=== PATIENT | male | born 1940 | race Caucasian/White ===

== ENCOUNTER 2017-08-02 08:37 | Outpatient (CLI) | payer MEDICARE, BC ==
[2017-08-02 13:25] LABS: Bilirubin Negative (Negative); Blood, Urine Negative (Negative); Glucose, Urine (Dipstick) Negative (Negative); Ketone, Urine Negative (Negative); Nitrite Negative (Negative); Protein, Urine (Dipstick) Trace mg/dL (Neg-Trace); Urobilinogen 0.2 mg/dL (0.2-1.0)
[2017-08-02 13:30] LABS: Bacteria/HPF None Seen HPF (None Seen); Hyaline Casts/LPF 0-3 HYALINE CAST LPF (0-3 Hyaline); RBC/HPF 0-3 HPF (0-3); Squamous Epithelial None Seen HPF (0-3); WBC/HPF None Seen HPF (0-3)
[2017-08-02 13:35] LABS: Hematocrit 32.3 % (42.0-52.0); Mean Platelet Volume 7.8 fL (7.4-10.4); Red Blood Cell (RBC) Count 3.05 mill/uL (4.70-6.10); White Blood Cell (WBC) Count 6.7 thou/uL (4.8-10.8)
[2017-08-02 13:45] LABS: PTT 28.9 SEC (22.9-36.1); Prothrombin Time 14.5 SEC (12.0-14.7)
[2017-08-02 13:47] LABS: Anion Gap 14 mmol/L (10-20); BUN (Urea Nitrogen) 42 mg/dL (8.4-25.7); Calc. Creatinine Clearance 0 mL/min (70-130); Calcium 9.1 mg/dL (7.8-10.44); Carbon Dioxide 17 mmol/L (23-31); Chloride 115 mmol/L (98-107); Estimated GFR-MDRD 49
== END 2017-08-02 08:38 | disposition home or self-care (01) ==
LOC: LABBT 08:37
PROVIDERS: ATTEND Orthopaedic Surgery
DX: Z01.818 Encounter for other preprocedural examination (principal); M17.11 Unilateral primary osteoarthritis, right knee
CPT/HCPCS: 80048; 81001; 85027; 85610; 85730; 86850; 86900; 86901; 87081; 93005; 93010

== ENCOUNTER 2017-08-02 09:15 | Inpatient (IN) | payer MEDICARE, BC ==
[2017-08-02 09:15] VITALS: BMI 28.5
--- NOTE | 2017-08-04 06:21 | HP ---
DATE OF ADMISSION: 08/08/2017 HISTORY OF PRESENT ILLNESS: The patient is a 76-year-old male with a long history of progressive de generative arthritis of the right knee. He has had previous arthroscopy 8 to 10 years ago. The pat ient has progressive symptoms despite rest, restriction of activities, pain medications, and previou s cortisone injection. The pain is now interfering with day-to-day activities. PAST MEDICAL HISTORY: The patient has history of atherosclerotic cardiovascular disease. PAST SURGICAL HISTORY: He has had previous CABG, pacemaker insertion and a cardiac ablation. He madden s been seen and cleared for surgery by Dr. Miranda. He has also had medical clearance from Dr. Chelita farias. The patient has had a recent circumcision and he is having no further problems and this wound is healed. This was performed by Dr. Hdez. CURRENT MEDICATIONS: Include aspirin 81 mg, Eliquis, although he has stopped this 3 days prior to a nticipated surgery. His other medications include enalapril, carvedilol, Lipitor, isosorbide, folic acid, fish oil, pantoprazole, Levemir for diabetes, Nateglinide, Lasix, spironolactone, multivitami ns, Tylenol #3. ALLERGIES: He has no known allergies. FAMILY HISTORY/SOCIAL HISTORY/REVIEW OF SYSTEMS: Otherwise unremarkable. The patient has had ring finger trigger finger treated with cortisone injection. PHYSICAL EXAMINATION: GENERAL: Reveals an elderly healthy male. HEENT: Unremarkable. NECK: Supple. CHEST: Clear. HEART: Regular rate and rhythm. ABDOMEN: Soft, nontender. RECTAL/GENITAL: Deferred. EXTREMITIES: Pertinent findings are related to the right knee. There is a trace effusion. There i s moderate varus deformity. There is tenderness and crepitus over the medial joint line. There are healed arthroscopy puncture sites. Range of motion is 5-105 degrees. There is no instability. NEUROVASCULAR: Intact. Pulses are 1+. There is a right antalgic gait. X-RAY FINDINGS: X-rays of the right knee reveal bone on bone collapse medially. IMPRESSION: 1. Posttraumatic degenerative arthritis, right knee 2. Atherosclerotic cardiovascular disease, on Eliquis. 3. Diabetes. 4. History of prostate cancer in remission. PLAN: Right total knee replacement. The nature of the surgery, length of recovery, and potential c omplications such as infection, loss of motion, incomplete relief, delayed wound healing, neurovascu lar injury, thromboembolic phenomenon, possible transfusion, and need for revision have been discuss ed in detail.
[2017-08-08] MEDS ORDERED: Tranexamic Acid 1,000 MG/100 ML BAG ONE ×2 (07:06→11:37)
[2017-08-08] MEDS ORDERED: Vancomycin HCl 1.5 GM, Admixture Fee 1 EACH in Sodium Chloride 0.9% 250 ML 300 ML IVPB SCH (07:30)
[2017-08-08] MEDS ORDERED: Midazolam HCl 2 mg/2 ml Vial ONE (07:38)
[2017-08-08] MEDS ORDERED: Ropivacaine 0.2% HCl/PF 20 ML ONE (07:38)
[2017-08-08] MEDS ORDERED: Fentanyl 100 MCG/2 ML VIAL ONE (07:38)
[2017-08-08] MEDS ORDERED: traMADol HCl 50 MG TAB PO PRN ×3 (07:51→12:18)
[2017-08-08] MEDS ORDERED: Zolpidem Tartrate 5 MG TAB PO PRN ×3 (07:51→17:24)
[2017-08-08] MEDS ORDERED: Ropivacaine HCl/PF 250 ML in Premix Bag 1 BAG NERVE BLCK SCH (07:51)
[2017-08-08] MEDS ORDERED: Ondansetron HCl/PF 4 MG/2 ML Vial IVP PRN ×4 (07:51→17:24)
[2017-08-08] MEDS ORDERED: Promethazine HCl 25 MG/ML VIAL IM PRN ×3 (07:51→17:24)
[2017-08-08] MEDS ORDERED: HYDROcodone/Acetaminophen 7.5/325 mg Tablet PO PRN ×2 (07:52)
[2017-08-08] MEDS ORDERED: Lidocaine 1% w/Epinephrine 1:200K 30 ML VIAL ONE (09:07)
[2017-08-08] MEDS ORDERED: Bupivacaine 0.25% HCL 30 ML VIAL ONE (09:07)
[2017-08-08] MEDS ORDERED: Midazolam HCl 5 mg/5 ml Vial ONE (09:20)
[2017-08-08] MEDS ORDERED: PHENYLEPHRINE-NS 100 MCG/ML 10 ML SYRINGE ONE (10:16)
[2017-08-08] MEDS ORDERED: Propofol 200 MG/20 ML VIAL ONE (10:16)
[2017-08-08] MEDS ORDERED: Promethazine HCl 25 MG/ML VIAL SLOW IVP PRN ×2 (11:37→12:18)
[2017-08-08] MEDS ORDERED: Tranexamic Acid 1,000 MG in Sodium Chloride 0.9% 100 ML IVPB SCH ×2 (11:45→12:18)
[2017-08-08] MEDS ORDERED: diphenhydrAMINE HCl 25 MG CAP PO PRN ×2 (12:18→17:24)
[2017-08-08] MEDS ORDERED: Acetaminophen 325 MG TAB PO PRN (12:18)
[2017-08-08] MEDS ORDERED: Cyanocobalamin 1000 MCG/ML VIAL IM SCH (12:18)
[2017-08-08] MEDS ORDERED: Fentanyl 100 MCG/2 ML VIAL SLOW IVP PRN (12:18)
[2017-08-08] MEDS ORDERED: HYDROcodone/Acetaminophen 10/325 mg Tablet PO PRN ×2 (12:18)
[2017-08-08] MEDS: Fentanyl 100 MCG/2 ML VIAL IV PRN ×2 (12:45→14:51)
--- NOTE | 2017-08-08 13:44 | OP ---
DATE OF PROCEDURE: 08/08/2017 SURGEON: Dr. Arturo Menendez EP TECHNOLOGIST: Pancho Kaufman PA-C. ANESTHESIA: Spinal plus femoral and sciatic nerve blocks. PREOPERATIVE DIAGNOSES: Degenerative arthritis, right knee. POSTOPERATIVE DIAGNOSIS: Degenerative arthritis, right knee. PROCEDURES: Right total knee replacement with cemented Triathlon components with computer-assisted navigation. NARRATIVE REPORT: After satisfactory anesthesia was induced in supine position, sequential compress ion device was placed on the non-operative leg throughout the procedure. The right leg was then pre pped and draped in routine sterile fashion. Right leg was elevated, exsanguinated with an Esmarch b andage, and the tourniquet inflated to 250 mmHg. A longitudinal midline incision was made and jose f ed down through subcutaneous tissues. Bleeding points controlled with cautery. Medial parapatellar arthrotomy was performed. Patella was dislocated laterally and portions of the fat pad were excise d for exposure. There was marked degenerative arthritis of the knee, especially medially, with larg e areas of exposed bone. Meniscal remnants and osteophytes were removed. Using the [employer] pinless navigation system and the appropriate guides, the distal femoral and proximal tibial articular surf aces were excised with an oscillating saw to accept the trial components. It was felt that a #7 fem oral component with #6 tibial baseplate and 9-mm CS plastic insert gave appropriate size, fit, stabi lity, and correction of the preoperative deformity. The patellar articular surface was excised to a ccept an all plastic A35 patellar component. There was good patellar tracking. The trial component s were removed. The knee was copiously irrigated with pulsatile lavage and the bony surfaces thorou ghly cleaned and dried. The permanent components were then cemented in a single stage using 1 packa ge of cement mixed with 1 gram of tobramycin powder. Excess cement was removed. There was again go od fit and stability of the components. Knee was again copiously irrigated. The medial retinaculum and quadriceps mechanism was closed with interrupted #2 Vicryl and a running #2 Quill. Subcutaneou s tissues were closed with running 0 Quill suture and the skin closed with running subcuticular 3-0 Monoderm and SurgiSeal skin adhesive. Sterile bulky compressive dressing was applied and the tourni quet deflated after 77 minutes. The foot promptly pinked up. Sequential compression device was baudilio raul on the operated leg. He was awakened and taken to recovery room in stable condition. There wer e no apparent intraoperative complications. The estimated blood loss was less than 100 mL.
[2017-08-08] MEDS ORDERED: Carvedilol 6.25 MG TAB PO SCH (14:00)
[2017-08-08] MEDS ORDERED: Dextrose 5% in Water 1,000 ML IV PRN (14:53)
[2017-08-08] MEDS ORDERED: Dextrose 50% Abboject 50 ML SYRINGE SLOW IVP PRN (14:53)
[2017-08-08] MEDS ORDERED: HumaLOG 300 UNITS/3 ML VIAL SC PRN (14:53)
[2017-08-08] MEDS: Fentanyl 100 MCG/2 ML VIAL SLOW IVP PRN ×2 (15:50→17:18)
--- NOTE | 2017-08-08 16:16 | RAD ---
RIGHT KNEE TWO VIEWS: 08/08/17 HISTORY: 76-year-old male status post total knee replacement. FINDINGS: Recent total knee replacement changes. No dislocation or periprosthetic acute fracture or significan t abnormality. IMPRESSION: Recent post total knee arthroplasty changes. POS: OFF
[2017-08-08] MEDS: Fish Oil 1,000 MG CAP PO SCH ×2 (17:19→20:28)
[2017-08-08] MEDS ORDERED: HYDROmorphone 10 mg/100 ml CADD IVPB PRN (17:24)
[2017-08-08] MEDS ORDERED: diphenhydrAMINE HCl 50 MG/ML 1 ML VIAL IVP PRN (17:24)
[2017-08-08] MEDS ORDERED: Naloxone HCl 0.4 mg/ml Vial IV PRN (17:24)
[2017-08-08] MEDS ORDERED: diphenhydrAMINE HCl 50 MG/ML 1 ML VIAL IM PRN (17:24)
[2017-08-08] MEDS ORDERED: Communication Order-Pharmacy FS SCH (17:30)
[2017-08-08] MEDS: Sodium Chloride 0.9% 1,000 ML IV SCH ×2 (19:27→21:24)
[2017-08-08] MEDS: Nateglinide 120 MG TAB PO SCH (19:29)
[2017-08-08] MEDS ORDERED: Vancomycin HCl 1.5 GM in Sodium Chloride 0.9% 250 ML 300 ML IVPB SCH (20:00)
[2017-08-08] MEDS: Atorvastatin Calcium 20 MG TAB PO SCH (20:28)
[2017-08-08] MEDS: Carvedilol 6.25 MG TAB PO SCH (20:28)
[2017-08-08] MEDS: Spironolactone 25 MG TAB PO SCH (20:28)
--- NOTE | 2017-08-08 20:39 | CON ---
DATE OF CONSULTATION: 08/08/2017 ATTENDING PHYSICIAN: Dr. Menendez. PRIMARY CARE PHYSICIAN: Dr. Gibbs. WEATHER ANCHOR: Dr. Miranda. REASON FOR CONSULTATION: Further Aid in medical management. HOSPITAL COURSE: Mr. Ramos is a 76-year-old gentleman who was admitted to the hospital for an el ective right total knee replacement. The patient had failed conservative measures. The patient cur rently is approximately 3 hours postop and has no significant complaint other than some soreness in his right knee. He denies chest pain or shortness of breath. No PND, no orthopnea, no nausea, no v omiting. PAST MEDICAL HISTORY: Significant for pacemaker placement; coronary artery disease status post bypa ss; elevated cholesterol; hypertension; diabetes; prostate cancer as well as macular degeneration. PAST SURGICAL HISTORY: He has had coronary bypass grafting as well as an ablation, tonsillectomy, c holecystectomy and adenoidectomy. ALLERGIES: There are no known drug allergies. SOCIAL HISTORY: He is a former smoker, denies any alcohol use. , has 2 children. FAMILY HISTORY: Significant for hypertension, cerebrovascular disease, diabetes, and heart disease. MEDICATIONS: Current medications include: Eliquis 5 mg twice daily, ascorbic acid 500 mg daily, as pirin 81 mg daily, atorvastatin 20 mg q.p.m., blueberry 1 capsule daily, carvedilol 12.5 mg twice da rossy, cholecalciferol 1000 units q. day, cranberry extract 1 daily, cyanocobalamin 1000 mcg injection once a month akinesia, enalapril 5 mg twice daily, fish oil 1000 mg 3 times a day, folic acid 0.4 m g daily, chondroitin complex once a day, green tea extract 500 mg daily, Levemir insulin 55 units bone bcu at bedtime, isosorbide mononitrate extended release 60 mg, but he takes one-half tablet daily, l utein 20 mg daily, Centrum Silver 1 tablet daily, Starlix 120 mg q. day, Protonix 40 mg daily, Aldac tone 25 mg daily, zinc 50 mg daily, turmeric capsule 3 times a day. PHYSICAL EXAMINATION: GENERAL: He is alert and oriented. He appears to be in no acute distress. VITAL SIGNS: Blood pressure was 158/78, heart rate is in the 60s, respiratory rate of 16, and he is afebrile. HEENT: Pupils are equal, round, and reactive. Extraocular muscles are intact. His sclerae are ani cteric. Throat: There is no erythema, no exudates. NECK: No adenopathy. No bruits. LUNGS: Clear. No wheezing, no rales. CARDIOVASCULAR: He has a normal S1, S2. No S3 or S4. No murmurs, clicks, no rubs. ABDOMEN: Soft, nontender, nondistended. Positive for bowel sounds. No rebound, no guarding. EXTREMITIES: There is no clubbing, cyanosis, no edema. NEUROLOGIC: The exam is nonfocal. LABORATORY DATA: He had lab results done on 08/02/2017, which will have been reviewed. ASSESSMENT AND PLAN: 1. This is a pleasant 76-year-old gentleman who is being admitted for an elective right total knee replacement. The patient is shortly postop and he is doing quite well. His blood pressure is overa ll stable. He is currently getting his first dose of antihypertensive now. With regards to his blo od pressure, we will continue his usual home medications and place him on hydralazine only as needed . 2. For diabetes mellitus, his oral hypoglycemic Starlix can be restarted tomorrow and we will cover him with a sliding scale insulin in the interim. He has a history of chronic anticoagulation, pres umably for atrial fibrillation and he is on Eliquis, this has already been restarted. There is a hi story of atrial flutter in his records from Dr. Miranda. Otherwise, we will be happy to follow alvarez hernandez with you.
[2017-08-09] MEDS: HumaLOG 300 UNITS/3 ML VIAL SC PRN ×3 (05:46→16:35)
[2017-08-09 06:27] LABS: Hematocrit 27.5 % (42.0-52.0); Red Blood Cell (RBC) Count 2.63 mill/uL (4.70-6.10); White Blood Cell (WBC) Count 7.4 thou/uL (4.8-10.8)
[2017-08-09] MEDS ORDERED: Diabetic Tussin 200 MG/10 ML UDCUP PO PRN (06:53)
[2017-08-09] MEDS ORDERED: Mag-Al 1200 mg/1200 mg/30 ML UDCUP PO PRN (06:53)
[2017-08-09] MEDS ORDERED: Milk Of Magnesia 30 ML UDCUP PO PRN (06:53)
[2017-08-09] MEDS ORDERED: Artificial Tears 18 DROP/0.9 ML EA EYE PRN (06:53)
[2017-08-09] MEDS ORDERED: Eucerin (Mineral Oil/Petrolatum,White) 30 gm Jar TOP PRN (06:53)
[2017-08-09] MEDS ORDERED: Loperamide HCl 2 MG CAP PO PRN (06:53)
[2017-08-09] MEDS ORDERED: Senokot 8.6 MG TAB PO PRN (06:53)
[2017-08-09] MEDS ORDERED: Ondansetron ODT 4 MG TAB PO PRN (06:53)
[2017-08-09] MEDS: Cyanocobalamin (Vitamin B-12) 1,000 MCG TAB PO SCH (07:57)
[2017-08-09] MEDS: Famotidine 20 MG TAB PO SCH ×2 (07:57→20:29)
[2017-08-09] MEDS: Folic Acid 1 MG TAB PO SCH (07:57)
[2017-08-09] MEDS: Senokot S 8.6-50 MG TAB PO SCH ×2 (07:58→20:27)
[2017-08-09] MEDS: Fish Oil 1,000 MG CAP PO SCH ×4 (07:58→20:28)
[2017-08-09] MEDS: Apixaban 5 MG TAB PO SCH ×2 (07:58→20:28)
[2017-08-09] MEDS: Multivitamin W/ Minerals 1 TAB PO SCH (07:59)
[2017-08-09] MEDS: Ferrous Gluconate 324 MG TAB PO SCH ×2 (07:59→16:34)
[2017-08-09] MEDS: Carvedilol 6.25 MG TAB PO SCH ×2 (08:00→20:27)
[2017-08-09] MEDS: Ascorbic Acid 500 mg Chewable Tablet PO SCH (08:00)
[2017-08-09] MEDS: Aspirin 81 mg Enteric Coated Tablet PO SCH (08:00)
[2017-08-09] MEDS: Nateglinide 120 MG TAB PO SCH ×3 (08:01→16:52)
[2017-08-09] MEDS ORDERED: Lutein [Lutein] 20 MG PO SCH (09:00)
--- NOTE | 2017-08-09 11:59 | PDOC.PN ---
- Subjective Encounter Start Date: 08/09/17 Encounter Start Time: 07:30 -: old records requested/rev Patient seen and examined. No new complaints. No overnight events - Objective MAR Reviewed: Yes Vital Signs & Weight: Vital Signs (12 hours) Temp Pulse Resp BP BP Pulse Ox 08/09/17 08:01 143/69 H 08/09/17 08:00 97.8 F 73 18 143/69 H 08/09/17 03:47 98.1 F 69 16 127/66 96 Weight Weight 205 lb I&O: 08/08/17 08/09/17 08/10/17 06:59 06:59 06:59 Output Total 1100 Balance -1100 Result Diagrams: 08/09/17 05:18 Additional Labs: Accuchecks 08/09/17 08/09/17 08/08/17 11:08 05:44 20:40 POC Glucose 232 H 227 H 236 H Phys Exam - Physical Examination Constitutional: NAD HEENT: PERRLA, moist MMs, sclera anicteric Neck: no JVD, supple Respiratory: no wheezing, no rales, no rhonchi Cardiovascular: RRR, no significant murmur, no rub Gastrointestinal: soft, non-tender, no distention, positive bowel sounds Musculoskeletal: no edema, pulses present right kneww with dressing, nerve block in place Neurological: non-focal, normal sensation, moves all 4 limbs Psychiatric: normal affect, A&O x 3 Skin: no rash, normal turgor Dx/Plan (1) Status post total right knee replacement Code(s): Z96.651 - PRESENCE OF RIGHT ARTIFICIAL KNEE JOINT Status: Acute (2) CAD (coronary artery disease) Code(s): I25.10 - ATHSCL HEART DISEASE OF [place] CORONARY ARTERY W/O ANG PCTRS Status: Chronic (3) Chronic anticoagulation Code(s): Z79.01 - RESIDENTIAL (CURRENT) USE OF ANTICOAGULANTS Status: Chronic (4) Diabetes type 2, controlled Code(s): E11.9 - TYPE 2 DIABETES MELLITUS WITHOUT COMPLICATIONS Status: Chronic (5) Dyslipidemia Code(s): E78.5 - HYPERLIPIDEMIA, UNSPECIFIED Status: Chronic (6) GERD (gastroesophageal reflux disease) Code(s): K21.9 - GASTRO-ESOPHAGEAL REFLUX DISEASE WITHOUT ESOPHAGITIS Status: Chronic (7) Hypertension Code(s): I10 - ESSENTIAL (PRIMARY) HYPERTENSION Status: Chronic (8) Macrocytic anemia Code(s): D53.9 - NUTRITIONAL ANEMIA, UNSPECIFIED Status: Chronic (9) Osteoarthritis Code(s): M19.90 - UNSPECIFIED OSTEOARTHRITIS, UNSPECIFIED SITE Status: Chronic - Plan cont current plan of care, PT/OT * continue aspirin for DVT prophylaxis * continue pepcid for GI prophylaxis * nerve block as per anesthesia * PT/OT as per JU protocol treatment * code status - Full code * medication reviewed as below * symptomatic treatment * discussed with family. * pain controlled * start levemir. Review of Systems - Review of Systems ENT: negative: Ear Pain, Ear Discharge, Nose Pain, Nose Discharge, Nose Congestion, Mouth Pain, Mouth Swelling, Throat Pain, Throat Swelling, Other Respiratory: negative: Cough, Dry, Shortness of Breath, Hemoptysis, SOB with Excertion, Pleuritic Pain, Sputum, Wheezing Cardiovascular: negative: Chest Pain, Palpitations, Orthopnea, Paroxysmal Noc. Dyspnea, Edema, Light Headedness, Other Gastrointestinal: negative: Nausea, Vomiting, Abdominal Pain, Diarrhea, Constipation, Melena, Hematochezia, Other Genitourinary: negative: Dysuria, Frequency, Incontinence, Hematuria, Retention , Other Musculoskeletal: negative: Neck Pain, Shoulder Pain, Arm Pain, Back Pain, Hand Pain, Leg Pain, Foot Pain, Other - Medications/Allergies Allergies/Adverse Reactions: Allergies Allergy/AdvReac Type Severity Reaction Status Date / Time clopidogrel [From Plavix] Allergy Verified 08/02/17 09:15 Medications: Current Medications Acetaminophen (Tylenol) 650 mg PO Q4H PRN PRN Reason: HOPE/ T > 101F; Mild Pain (1-3) Al Hydroxide/Mg Hydroxide (Maalox) 15 ml PO Q4H PRN PRN Reason: Heartburn or Indigestion Apixaban (Eliquis) 2.5 mg PO BID [facility] Last Admin: 08/09/17 07:58 Dose: 2.5 mg Artificial Tears (Tears Naturale) 0 drop EA EYE PRN PRN PRN Reason: Dry Eyes Ascorbic Acid (Vitamin C) 500 mg PO QAM [facility] Last Admin: 08/09/17 08:00 Dose: 500 mg Aspirin ([facility]cot[facility]) [facility] [place] Last Admin: 08/09/17 08:00 Dose: 81 mg Atorvastatin Calcium (Lipitor) 20 mg PO QPM [facility] Last Admin: 08/08/17 20:28 Dose: 20 mg Carvedilol (Coreg) 12.5 mg PO BID [facility] Last Admin: 08/09/17 08:00 Dose: 12.5 mg Cholecalciferol (Vitamin D3) 1,000 units PO QAM [facility] Last Admin: 08/09/17 07:57 Dose: 1,000 units Cyanocobalamin (Vitamin B-12) 1,000 mcg PO DAILY [facility] Last Admin: 08/09/17 07:57 Dose: 1,000 mcg Dextrose/Water (Dextrose 50%) 25 gm SLOW IVP PRN PRN PRN Reason: Hypoglycemia Diphenhydramine HCl (Benadryl) 25 mg PO Q6H PRN PRN Reason: Itching Diphenhydramine HCl (Benadryl) 25 mg IVP Q3H PRN PRN Reason: Itching Diphenhydramine HCl (Benadryl) 25 mg PO Q3H PRN PRN Reason: Itching Diphenhydramine HCl (Benadryl) 25 mg IM Q3H PRN PRN Reason: Itching Enalapril Maleate (Vasotec) 5 mg PO BID [facility] Last Admin: 08/09/17 08:01 Dose: 5 mg Famotidine (Pepcid) 20 mg PO BID [facility] Last Admin: 08/09/17 07:57 Dose: 20 mg Ferrous Gluconate (Fergon) 324 mg PO BID[facility] Last Admin: 08/09/17 07:59 Dose: 324 mg Fish Oil (Fish Oil) 1,000 mg PO TID [facility] Last Admin: 08/09/17 07:58 Dose: 1,000 mg Folic Acid (Folvite) 1 mg PO DAILY [facility] Last Admin: 08/09/17 07:57 Dose: 1 mg Glucagon (Glucagon) 1 mg IM PRN PRN PRN Reason: Hypoglycemia Guaifenesin (Robitussin Sf) 200 mg PO Q4H PRN PRN Reason: Cough Hydralazine HCl (Apresoline) 25 mg PO TID PRN PRN Reason: SBP Greater Than 170 Hydralazine HCl (Apresoline) 10 mg SLOW IVP Q4H PRN PRN Reason: Systolic BP > 180 Hydromorphone HCl (Dilaudid Cadd) 0 mg IVPB INF PRN PRN Reason: Pain Last Admin: 08/08/17 19:53 Dose: 10 mg Ropivacaine 250 ml/ Device 250 mls @ 0 mls/hr NERVE BLCK INF HERSON PRN Reason: As Directed Sodium Chloride (Normal Saline 0.9%) 1,000 mls @ 100 mls/hr IV .Q10H [facility] Last Admin: 08/08/17 21:24 Dose: Not Given Dextrose/Water (D5w) 1,000 mls @ 0 mls/hr IV .Q0M PRN; As Directed PRN Reason: Hypoglycemia Insulin Detemir 55 units/ (Miscellaneous Medication) 0.55 mls @ 0 mls/hr SC HS HERSON Insulin Human Lispro (Humalog) 0 units SC .MODERATE SLIDING SC PRN PRN Reason: Moderate Correctional Scale Last Admin: 08/09/17 11:34 Dose: 4 unit Insulin Human Lispro (Humalog) 0 units SC .BEDTIME SLIDING SC PRN PRN Reason: Bedtime Correctional Scale Last Admin: 08/08/17 20:42 Dose: 2 unit Iron/Minerals/Multivitamins (Theragran M) 1 tab PO DAILY [facility] Last Admin: 08/09/17 07:59 Dose: 1 tab Isosorbide Mononitrate (Imdur Er) 30 mg PO QPM [facility] Last Admin: 08/08/17 20:28 Dose: 30 mg Loperamide HCl (Imodium) 2 mg PO PRN PRN PRN Reason: Diarrhea/Loose Stools Magnesium Hydroxide (Milk Of Magnesium) 30 ml PO DAILYPRN PRN PRN Reason: Constipation Mineral Oil/White Petrolatum (Eucerin Cream) 0 gm TOP BIDPRN PRN PRN Reason: Dry Skin Naloxone HCl (Narcan) 0.2 mg IV Q5MIN PRN PRN Reason: Opiate Reversal Nateglinide (Starlix) 120 mg PO AC [facility] Last Admin: 08/09/17 08:01 Dose: 120 mg Ondansetron HCl (Zofran) 4 mg IVP Q6H PRN PRN Reason: Nausea/Vomiting Last Admin: 08/09/17 06:34 Dose: 4 mg Ondansetron HCl (Zofran) 4 mg IVP Q6H PRN PRN Reason: Nausea/Vomiting Ondansetron HCl (Zofran Odt) 4 mg PO Q6H PRN PRN Reason: Nausea/Vomiting Pantoprazole Sodium (Protonix) 40 mg PO 2100 [facility] Last Admin: 08/08/17 20:28 Dose: Not Given Lutein [Lutein] 20 (Mg) 1 each PO QAM [facility] Promethazine HCl (Phenergan) 12.5 mg SLOW IVP Q4H PRN PRN Reason: Nausea/Vomiting Promethazine HCl (Phenergan) 12.5 mg IM Q4H PRN PRN Reason: Nausea/Vomiting Senna (Senokot) 2 tab PO HSPRN PRN PRN Reason: Constipation Senna/Docusate Sodium (Senokot S) 2 tab PO BID [facility] Last Admin: 08/09/17 07:58 Dose: 2 tab Sodium Chloride (Flush - Normal Saline) 10 ml IVF Q12HR [facility] Last Admin: 08/08/17 20:28 Dose: Not Given Sodium Chloride (Flush - Normal Saline) 10 ml IVF PRN PRN PRN Reason: Saline Flush Spironolactone (Aldactone) 25 mg PO HS [facility] Last Admin: 08/08/17 20:28 Dose: 25 mg Zolpidem Tartrate (Ambien) 5 mg PO HSPRN PRN PRN Reason: Insomnia
[2017-08-09] MEDS: Sodium Chloride 0.9% 1,000 ML IV SCH ×2 (16:03→20:22)
[2017-08-09] MEDS: Spironolactone 25 MG TAB PO SCH (20:27)
[2017-08-09] MEDS: Atorvastatin Calcium 20 MG TAB PO SCH (20:28)
[2017-08-09] MEDS ORDERED: Insulin Detemir 100 UNITS/ML 55 UNITS in Pre-Filled Syringe 1 EACH SC SCH (21:00)
[2017-08-09] MEDS ORDERED: Non-Formulary Item 1 EACH (Insulin Detemir 100 Units/Ml [Levemir] 55 UNITS) SC SCH (21:00)
[2017-08-10] MEDS: Sodium Chloride 0.9% 1,000 ML IV SCH (04:11)
[2017-08-10 05:45] LABS: Hematocrit 27.1 % (42.0-52.0); Mean Platelet Volume 7.7 fL (7.4-10.4); Red Blood Cell (RBC) Count 2.56 mill/uL (4.70-6.10); White Blood Cell (WBC) Count 9.5 thou/uL (4.8-10.8)
[2017-08-10] MEDS: Famotidine 20 MG TAB PO SCH (07:49)
[2017-08-10] MEDS: Ascorbic Acid 500 mg Chewable Tablet PO SCH (07:49)
[2017-08-10] MEDS: Folic Acid 1 MG TAB PO SCH (07:49)
[2017-08-10] MEDS: Aspirin 81 mg Enteric Coated Tablet PO SCH (07:50)
[2017-08-10] MEDS: Senokot S 8.6-50 MG TAB PO SCH (07:50)
[2017-08-10] MEDS: Apixaban 5 MG TAB PO SCH (07:50)
[2017-08-10] MEDS: Carvedilol 6.25 MG TAB PO SCH (07:51)
[2017-08-10] MEDS: Ferrous Gluconate 324 MG TAB PO SCH (07:51)
[2017-08-10] MEDS: Fish Oil 1,000 MG CAP PO SCH (07:52)
[2017-08-10] MEDS: Multivitamin W/ Minerals 1 TAB PO SCH (07:52)
[2017-08-10] MEDS: Nateglinide 120 MG TAB PO SCH (07:52)
[2017-08-10] MEDS: Cyanocobalamin (Vitamin B-12) 1,000 MCG TAB PO SCH (09:05)
--- NOTE | 2017-08-10 10:08 | PDOC.PN ---
- Subjective Encounter Start Date: 08/10/17 Encounter Start Time: 07:40 Patient seen and examined. No new complaints. No overnight events - Objective MAR Reviewed: Yes Vital Signs & Weight: Vital Signs (12 hours) Temp Pulse Resp BP BP Pulse Ox 08/10/17 09:05 133/69 08/10/17 07:51 133/69 08/10/17 07:30 98.2 F 72 20 133/69 97 08/10/17 04:40 98.0 F 70 16 121/65 95 08/09/17 23:55 98.5 F 76 17 138/65 94 L Weight Admit Weight 205 lb Weight 205 lb I&O: 08/09/17 08/10/17 08/11/17 06:59 06:59 06:59 Intake Total 225 Output Total 1100 750 Balance -1100 -525 Result Diagrams: 08/10/17 05:24 Additional Labs: Accuchecks 08/10/17 08/09/17 08/09/17 06:05 20:40 15:11 POC Glucose 170 H 208 H 271 H 08/09/17 11:08 POC Glucose 232 H Phys Exam - Physical Examination Constitutional: NAD HEENT: PERRLA, moist MMs, sclera anicteric Neck: no JVD, supple Respiratory: no wheezing, no rales, no rhonchi Cardiovascular: RRR, no significant murmur, no rub Gastrointestinal: soft, non-tender, no distention, positive bowel sounds Musculoskeletal: no edema, pulses present right knee with dressing Neurological: non-focal, normal sensation, moves all 4 limbs Psychiatric: normal affect, A&O x 3 Skin: no rash, normal turgor Dx/Plan (1) Status post total right knee replacement Code(s): Z96.651 - PRESENCE OF RIGHT ARTIFICIAL KNEE JOINT Status: Acute (2) CAD (coronary artery disease) Code(s): I25.10 - ATHSCL HEART DISEASE OF [place] CORONARY ARTERY W/O ANG PCTRS Status: Chronic (3) Chronic anticoagulation Code(s): Z79.01 - INTERMEDIATE (CURRENT) USE OF ANTICOAGULANTS Status: Chronic (4) Diabetes type 2, controlled Code(s): E11.9 - TYPE 2 DIABETES MELLITUS WITHOUT COMPLICATIONS Status: Chronic (5) Dyslipidemia Code(s): E78.5 - HYPERLIPIDEMIA, UNSPECIFIED Status: Chronic (6) GERD (gastroesophageal reflux disease) Code(s): K21.9 - GASTRO-ESOPHAGEAL REFLUX DISEASE WITHOUT ESOPHAGITIS Status: Chronic (7) Hypertension Code(s): I10 - ESSENTIAL (PRIMARY) HYPERTENSION Status: Chronic (8) Macrocytic anemia Code(s): D53.9 - NUTRITIONAL ANEMIA, UNSPECIFIED Status: Chronic (9) Osteoarthritis Code(s): M19.90 - UNSPECIFIED OSTEOARTHRITIS, UNSPECIFIED SITE Status: Chronic - Plan cont current plan of care, plan discussed w/ family, PT/OT * continue aspirin for DVT prophyalxis * continue protonix for GI prophylaxis * Nerve block as per anesthesia * pain controlled * discussed with family * medication reviewed as below * symptomatic treatment * Code status- Full code * continue Ferrous sulfate * overall medically stable. * plan for discharge today * resume home meds * will sign off Review of Systems - Review of Systems ENT: negative: Ear Pain, Ear Discharge, Nose Pain, Nose Discharge, Nose Congestion, Mouth Pain, Mouth Swelling, Throat Pain, Throat Swelling, Other Respiratory: negative: Cough, Dry, Shortness of Breath, Hemoptysis, SOB with Excertion, Pleuritic Pain, Sputum, Wheezing Cardiovascular: negative: Chest Pain, Palpitations, Orthopnea, Paroxysmal Noc. Dyspnea, Edema, Light Headedness, Other Gastrointestinal: negative: Nausea, Vomiting, Abdominal Pain, Diarrhea, Constipation, Melena, Hematochezia, Other Genitourinary: negative: Dysuria, Frequency, Incontinence, Hematuria, Retention , Other Musculoskeletal: negative: Neck Pain, Shoulder Pain, Arm Pain, Back Pain, Hand Pain, Leg Pain, Foot Pain, Other - Medications/Allergies Allergies/Adverse Reactions: Allergies Allergy/AdvReac Type Severity Reaction Status Date / Time clopidogrel [From Plavix] Allergy Verified 08/02/17 09:15 Medications: Current Medications Acetaminophen (Tylenol) 650 mg PO Q4H PRN PRN Reason: HOPE/ T > 101F; Mild Pain (1-3) Al Hydroxide/Mg Hydroxide (Maalox) 15 ml PO Q4H PRN PRN Reason: Heartburn or Indigestion Apixaban (Eliquis) 2.5 mg PO BID [facility] Last Admin: 08/10/17 07:50 Dose: 2.5 mg Artificial Tears (Tears Naturale) 0 drop EA EYE PRN PRN PRN Reason: Dry Eyes Ascorbic Acid (Vitamin C) 500 mg PO QAM [facility] Last Admin: 08/10/17 07:49 Dose: 500 mg Aspirin (Ecotrin) 81 mg PO QAM [facility] Last Admin: 08/10/17 07:50 Dose: 81 mg Atorvastatin Calcium (Lipitor) 20 mg PO QPM [facility] Last Admin: 08/09/17 20:28 Dose: 20 mg Carvedilol (Coreg) 12.5 mg PO BID [facility] Last Admin: 08/10/17 07:51 Dose: 12.5 mg Cholecalciferol (Vitamin D3) 1,000 units PO QAM [facility] Last Admin: 08/10/17 07:50 Dose: 1,000 units Cyanocobalamin (Vitamin B-12) 1,000 mcg PO DAILY [facility] Last Admin: 08/10/17 09:05 Dose: 1,000 mcg Dextrose/Water (Dextrose 50%) 25 gm SLOW IVP PRN PRN PRN Reason: Hypoglycemia Diphenhydramine HCl (Benadryl) 25 mg PO Q6H PRN PRN Reason: Itching Diphenhydramine HCl (Benadryl) 25 mg IVP Q3H PRN PRN Reason: Itching Diphenhydramine HCl (Benadryl) 25 mg PO Q3H PRN PRN Reason: Itching Diphenhydramine HCl (Benadryl) 25 mg IM Q3H PRN PRN Reason: Itching Enalapril Maleate (Vasotec) 5 mg PO BID [facility] Last Admin: 08/10/17 09:05 Dose: 5 mg Famotidine (Pepcid) 20 mg PO BID [facility] Last Admin: 08/10/17 07:49 Dose: 20 mg Ferrous Gluconate (Fergon) 324 mg PO BID[facility] Last Admin: 08/10/17 07:51 Dose: 324 mg Fish Oil (Fish Oil) 1,000 mg PO TID [facility] Last Admin: 08/10/17 07:52 Dose: 1,000 mg Folic Acid (Folvite) 1 mg PO DAILY [facility] Last Admin: 08/10/17 07:49 Dose: 1 mg Glucagon (Glucagon) 1 mg IM PRN PRN PRN Reason: Hypoglycemia Guaifenesin (Robitussin Sf) 200 mg PO Q4H PRN PRN Reason: Cough Hydralazine HCl (Apresoline) 25 mg PO TID PRN PRN Reason: SBP Greater Than 170 Hydralazine HCl (Apresoline) 10 mg SLOW IVP Q4H PRN PRN Reason: Systolic BP > 180 Hydromorphone HCl (Dilaudid Cadd) 0 mg IVPB INF PRN PRN Reason: Pain Last Admin: 08/08/17 19:53 Dose: 10 mg Ropivacaine 250 ml/ Device 250 mls @ 0 mls/hr NERVE BLCK INF [facility] PRN Reason: As Directed Last Admin: 08/09/17 11:57 Dose: 250 mls Sodium Chloride (Normal Saline 0.9%) 1,000 mls @ 100 mls/hr IV .Q10H [facility] Last Admin: 08/10/17 04:11 Dose: Not Given Dextrose/Water (D5w) 1,000 mls @ 0 mls/hr IV .Q0M PRN; As Directed PRN Reason: Hypoglycemia Insulin Detemir 55 units/ (Miscellaneous Medication) 0.55 mls @ 0 mls/hr [facility] Last Admin: 08/09/17 20:30 Dose: 0.55 mls Insulin Human Lispro (Humalog) 0 units SC .MODERATE SLIDING SC PRN PRN Reason: Moderate Correctional Scale Last Admin: 08/09/17 16:35 Dose: 6 unit Insulin Human Lispro (Humalog) 0 units SC .BEDTIME SLIDING SC PRN PRN Reason: Bedtime Correctional Scale Last Admin: 08/08/17 20:42 Dose: 2 unit Iron/Minerals/Multivitamins (Theragran M) 1 tab PO DAILY [facility] Last Admin: 08/10/17 07:52 Dose: 1 tab Isosorbide Mononitrate (Imdur Er) 30 mg PO QPM [facility] Last Admin: 08/09/17 20:30 Dose: 30 mg Loperamide HCl (Imodium) 2 mg PO PRN PRN PRN Reason: Diarrhea/Loose Stools Magnesium Hydroxide (Milk Of Magnesium) 30 ml PO DAILYPRN PRN PRN Reason: Constipation Mineral Oil/White Petrolatum (Eucerin Cream) 0 gm TOP BIDPRN PRN PRN Reason: Dry Skin Naloxone HCl (Narcan) 0.2 mg IV Q5MIN PRN PRN Reason: Opiate Reversal Nateglinide (Starlix) 120 mg PO [facility] Last Admin: 08/10/17 07:52 Dose: 120 mg Ondansetron HCl (Zofran) 4 mg IVP Q6H PRN PRN Reason: Nausea/Vomiting Last Admin: 08/09/17 06:34 Dose: 4 mg Ondansetron HCl (Zofran) 4 mg IVP Q6H PRN PRN Reason: Nausea/Vomiting Ondansetron HCl (Zofran Odt) 4 mg PO Q6H PRN PRN Reason: Nausea/Vomiting Pantoprazole Sodium (Protonix) 40 mg PO 2100 [facility] Last Admin: 08/09/17 20:30 Dose: 40 mg Promethazine HCl (Phenergan) 12.5 mg SLOW IVP Q4H PRN PRN Reason: Nausea/Vomiting Promethazine HCl (Phenergan) 12.5 mg IM Q4H PRN PRN Reason: Nausea/Vomiting Senna (Senokot) 2 tab PO HSPRN PRN PRN Reason: Constipation Senna/Docusate Sodium (Senokot S) 2 tab PO BID [facility] Last Admin: 08/10/17 07:50 Dose: 2 tab Sodium Chloride (Flush - Normal Saline) 10 ml IVF Q12HR [facility] Last Admin: 08/09/17 20:30 Dose: Not Given Sodium Chloride (Flush - Normal Saline) 10 ml IVF PRN PRN PRN Reason: Saline Flush Spironolactone (Aldactone) 25 mg PO HS [facility] Last Admin: 08/09/17 20:27 Dose: 25 mg Zolpidem Tartrate (Ambien) 5 mg PO HSPRN PRN PRN Reason: Insomnia
[2017-08-10] MEDS ORDERED: HYDROcodone/Acetaminophen 10/325 mg Tablet PO PRN ×2 (10:19→10:20)
[2017-08-10] MEDS ORDERED: Fentanyl 100 MCG/2 ML VIAL SLOW IVP PRN (10:20)
--- NOTE | 2017-08-10 11:21 | DIS ---
DATE OF ADMISSION: 08/08/2017 DATE OF DISCHARGE: 08/10/2017 PRIMARY CARE PHYSICIAN: Dr. Gibbs. DISCHARGE DISPOSITION: Home. PRIMARY DISCHARGE DIAGNOSIS: Status post right total knee replacement. SECONDARY DISCHARGE DIAGNOSES: Coronary artery disease, chronic anticoagulation with Eliquis, diabe george type 2, dyslipidemia, gastroesophageal reflux disease, hypertension, macrocytic anemia, osteoart hritis. PRIMARY PROCEDURE/OPERATION: Right total knee replacement. RADIOLOGICAL INVESTIGATION: Knee x-ray. SIGNIFICANT LABS: Hemoglobin 9.3, MCV 106. DISCHARGE MEDICATIONS: Eliquis 5 mg p.o. b.i.d., vitamin C 500 mg p.o. daily, aspirin 81 mg p.o. da rossy, Lipitor 20 mg p.o. daily, Coreg 12.5 mg p.o. b.i.d., vitamin D3 1000 units p.o. daily, vitamin B12 1000 mcg IM every month, enalapril 5 mg p.o. b.i.d., fish oil 1000 mg p.o. t.i.d., folic acid 1 mg p.o. daily, glucosamine chondroitin 1 tablet p.o. daily, Levemir insulin 55 units subQ b.i.d., Im dur 60 mg half tablet daily, multivitamin 1 tablet p.o. daily, Starlix 120 mg p.o. a.c., Protonix 40 mg p.o. daily, Aldactone 25 mg p.o. daily, zinc 50 mg p.o. daily. CONTRAINDICATIONS: None. CODE STATUS: FULL CODE. INPATIENT CONSULTANTS: Dr. Menendez was primary while in hospital. Nitin team was consulted for medic al comanagement. TEST RESULTS PENDING ON DISCHARGE: None. ALLERGIES: PLAVIX. DISCHARGE PLAN: Post hospital, patient has followup appointment with Dr. Menendez on 08/24/2017 at 2:0 0 p.m. The patient will make appointment with primary care physician in 1 week. HOSPITAL COURSE: A 76-year-old male who was admitted by Dr. Menendez for right total knee replacement, which was done on 08/08/2017. Postoperatively, at [facility], nitin team was consulted for m edical comanagement. Patient's medical problems remained stable. We continued his home medication while in hospital as well as on discharge. Patient did very well with PT, OT as per [facility] y protocol treatment. While in hospital, he was given half dose of Eliquis therapy. Upon discharge , the patient will resume all his previous medications. The patient is seen and examined at bedside today. Please see my progress note from today for furth er details. The patient is planned for discharge today and we will sign off.
[2017-08-10 11:34] VITALS: BP 118/65; TEMP 98
== END 2017-08-10 15:33 | disposition home or self-care (01) | DRG 470 ==
LOC: SJJU 08-08 06:19
PROVIDERS: ADMIT Orthopaedic Surgery; ATTEND Orthopaedic Surgery
PROC: 0SRC0J9 Replacement of Right Knee Joint with Synthetic Substitute, Cemented, Open Approach (ICD-10-PCS; principal; 2017-08-08)
PROC: 3E0T3BZ Introduction of Anesthetic Agent into Peripheral Nerves and Plexi, Percutaneous Approach (ICD-10-PCS; 2017-08-08)
PROC: 8E0YXBZ Computer Assisted Procedure of Lower Extremity (ICD-10-PCS; 2017-08-08)
DX: M17.31 Unilateral post-traumatic osteoarthritis, right knee (principal); E11.9 Type 2 diabetes mellitus without complications; D53.9 Nutritional anemia, unspecified; I10 Essential (primary) hypertension; I25.10 Atherosclerotic heart disease of native coronary artery without angina pectoris; K21.9 Gastro-esophageal reflux disease without esophagitis; Z79.01 Long term (current) use of anticoagulants; Z85.46 Personal history of malignant neoplasm of prostate; Z95.1 Presence of aortocoronary bypass graft; Z95.810 Presence of automatic (implantable) cardiac defibrillator; Z87.891 Personal history of nicotine dependence; Z83.3 Family history of diabetes mellitus; Z82.3 Family history of stroke; Z82.49 Family history of ischemic heart disease and other diseases of the circulatory system
CPT/HCPCS: 36415; 36416; 85027; A4216; C1713; C1776; G8978-GP-CK; G8979-GP-CI; J1815; J2250; J2405; J2704; J2795; J3010; J3370; J7050; S0020

== ENCOUNTER 2020-06-25 06:24 | Day surgery (SDC) | payer MEDICARE, BC ==
[2020-06-23 08:32] VITALS: BMI 27.8
--- NOTE | 2020-06-24 08:33 | HP ---
HISTORY OF PRESENT ILLNESS: The patient is an 79-year-old male with a 7-month history of pain and tingling in both hands without injury. He had no significant relief with the Medrol Dosepak and use of night splints. The pain is gradually increasing and interfering with day-to-day activities and sleeping. PAST MEDICAL HISTORY: The patient has a history of atherosclerotic cardiovascular disease and pacemaker, currently on Eliquis, which he has stopped preoperatively. He had previous total knee replacement and has had prostate cancer in remission. CURRENT MEDICATIONS: Include, 1. . 2. Low-dose aspirin. 3. Eliquis, which he stopped days preoperatively. 4. Enalapril. 5. Carvedilol. 6. Lipitor. 7. Calcium. 8. Isosorbide. 9. Mobic acid. 10. Levemir. 11. Insulin for diabetes. 12. Multivitamins. 13. Glucosamine. ALLERGIES: HE HAS NO KNOWN ALLERGIES. FAMILY HISTORY: Otherwise unremarkable. SOCIAL HISTORY: Otherwise unremarkable. REVIEW OF SYSTEMS: Otherwise unremarkable as noted above, previous heart ablation, pacemaker, cardiac bypass, and diabetes. PHYSICAL EXAMINATION: GENERAL: Reveals a healthy elderly male. HEENT: Unremarkable. NECK: Supple. CHEST: Clear. HEART: Regular rate and rhythm. ABDOMEN: Soft, nontender. RECTAL: Deferred. GENITAL: Deferred. EXTREMITIES: Pertinent findings of both wrists, there is no swelling. No point tenderness. There is full range of motion. Motor exam is intact. Negative Phalen's test. Negative Tinel's sign. Subjective numbness in median nerve distribution bilaterally. There is good capillary refill. Pulses are trace. Nerve conduction studies reveal moderately severe bilateral carpal tunnel syndrome. IMPRESSION: 1. Bilateral carpal tunnel syndrome. 2. Atherosclerotic cardiovascular disease. 3. Diabetes. 4. History of prostate cancer. 5. History of atrial fibrillation, on Eliquis. PLAN: Bilateral endoscopic possible open carpal tunnel release. The nature of the surgery, length of recovery, and potential complications such as infection, loss of motion, incomplete relief, nerve injury, recurrence, need for additional treatment and repeat surgery were discussed in detail. Job ID: [id number]
[2020-06-25] MEDS ORDERED: Ketamine 50 MG/ML (10ML VIAL) ONE (08:27)
[2020-06-25] MEDS ORDERED: Propofol 500 MG/50 ML VIAL ONE (08:27)
[2020-06-25] MEDS ORDERED: Fentanyl 100 MCG/2 ML VIAL ONE (08:27)
[2020-06-25] MEDS ORDERED: Lidocaine 1% (PF) 30 ML VIAL ONE (08:29)
[2020-06-25] MEDS ORDERED: EPHEDRINE 25 MG/5 ML SYRINGE ONE ×2 (09:47→10:22)
[2020-06-25] MEDS ORDERED: PHENYLEPHRINE-NS 100 MCG/ML 10 ML SYRINGE ONE (10:22)
--- NOTE | 2020-06-25 14:19 | OP ---
DATE OF PROCEDURE: 06/25/2020 ANESTHESIA: Local plus TIVA. PREOPERATIVE DIAGNOSIS: Bilateral carpal tunnel syndrome. POSTOPERATIVE DIAGNOSES: Bilateral endoscopic carpal tunnel release. DESCRIPTION OF PROCEDURE: After satisfactory anesthesia was induced in supine position, the patient was prepped and draped in routine manner. The right wrist was addressed first. A field block was accomplished with 1% lidocaine 10 mL. The right arm was elevated and exsanguinated with an Esmarch bandage and the tourniquet inflated to 250 mmHg. A 2 cm transverse incision was made in the proximal wrist flexion crease, carried down through subcutaneous tissues. Bleeding points were controlled with Bovie cautery. Using sharp and blunt dissection, a distally based flap in the deep forearm fascia was developed and retracted distally. Palmaris longus tendon was retracted radially. Proximal edge of the deep forearm fascia was split under direct visualization with small scissors to make sure there was no proximal impingement of the median nerve. Synovium elevator was introduced beneath the transverse carpal ligament, the synovium cleaned from the undersurface. Carpal tunnel dilators were inserted. The BA Systemse endoscopic carpal tunnel system was introduced beneath the transverse carpal ligament in line with the ring finger. The distal edge of the ligament was easily identified and divided in a distal to proximal direction by pulling the triggers of the assembly, engaging the knife, and withdrawing the scope proximally. This was done in several stages to make sure there was complete division of the transverse carpal ligament, which was documented with a video printer. After withdrawing the scope, a carpal tunnel dilator could be inserted in the carpal tunnel and there was markedly improved passage and subcutaneous position of the instrument. The scope was reintroduced into the carpal tunnel. There was wide separation of the 2 leaves of the transverse carpal ligament. The tourniquet was released after 7 minutes. There was no excessive bleeding and the scope was withdrawn. The wound was thoroughly irrigated and closed with a running subcuticular 3-0 nylon. A sterile dressing was applied, and attention was then directed to the left wrist and an identical procedure was performed on the left side with the tourniquet time being 6 minutes. After applying the dressing on the left side, both wrists were immobilized in a Velcro wrist splints and he was awakened and taken from the operating room in stable condition. There were no apparent intraoperative complications. The estimated blood loss was negligible. The patient will be discharged home in satisfactory condition, instructed on ice and elevation, and given written wound care instructions. He has [place] 5 at home for pain. He will be rechecked in my office in approximately 8 days or sooner if there are any problems prior to that time. Job ID: [id number]
== END 2020-06-25 11:00 | disposition home or self-care (01) ==
LOC: SDC 06:24
PROVIDERS: ATTEND Orthopaedic Surgery
PROC: 01N54ZZ Release Median Nerve, Percutaneous Endoscopic Approach (ICD-10-PCS; principal; 2020-06-25)
PROC: 01N54ZZ Release Median Nerve, Percutaneous Endoscopic Approach (ICD-10-PCS; 2020-06-25)
DX: G56.03 Carpal tunnel syndrome, bilateral upper limbs (principal); I25.10 Atherosclerotic heart disease of native coronary artery without angina pectoris; E11.9 Type 2 diabetes mellitus without complications; I48.91 Unspecified atrial fibrillation; Z85.46 Personal history of malignant neoplasm of prostate; Z79.01 Long term (current) use of anticoagulants; Z79.4 Long term (current) use of insulin; Z79.82 Long term (current) use of aspirin; Z79.899 Other long term (current) drug therapy; Z88.8 Allergy status to other drugs, medicaments and biological substances; Z95.1 Presence of aortocoronary bypass graft; Z95.810 Presence of automatic (implantable) cardiac defibrillator
CPT/HCPCS: 36416; J0690; J2001; J2704; J3010

== ENCOUNTER 2020-09-01 02:54 | Inpatient (IN) | payer MEDICARE, BC ==
[2020-09-01 03:31] LABS: #Eosinphils 0.1 thou/uL (0.0-0.7); #Lymphocytes 0.9 thou/uL (1.20-3.40); #Monocytes 0.5 thou/uL (0.11-0.59); #Neutrophils 4.7 thou/uL (1.40-6.50); %Basophils 0.3 % (0.0-1.0); %Eosinophils 1.3 % (0.0-10.0); %Monocytes 8.5 % (0.0-10.0); Hemoglobin 8.7 g/dL (14.0-18.0); Mean Corpuscular HGB CONC 32.1 g/dL (32.0-36.0); Mean Platelet Volume 7.7 fL (7.4-10.4); Platelet Count 183 thou/uL (130-400); RBC Distribution Width 12.7 % (11.5-14.5); Red Blood Cell (RBC) Count 2.64 mill/uL (4.70-6.10); White Blood Cell (WBC) Count 6.2 thou/uL (4.8-10.8)
[2020-09-01 03:51] LABS: ALT (SGPT) 22 U/L (8-55); AST (SGOT) 20 U/L (5-34); Albumin 3.8 g/dL (3.4-4.8); Alkaline Phosphatase 69 U/L (40-110); Anion Gap 15 mmol/L (10-20); BUN (Urea Nitrogen) 58 mg/dL (8.4-25.7); Bilirubin, Total 0.4 mg/dL (0.2-1.2); CK (CPK) 107 U/L (30-200); Calc. Creatinine Clearance 0 mL/min (70-130); Calcium 8.6 mg/dL (7.8-10.44); Carbon Dioxide 26 mmol/L (23-31); Chloride 107 mmol/L (98-107); Estimated GFR-MDRD 27; Globulin 1.7 g/dL (2.4-3.5); Glucose 157 mg/dL (83-110); Potassium 4.5 mmol/L (3.5-5.1); Protein, Total 5.5 g/dL (5.8-8.1); Sodium 143 mmol/L (136-145)
[2020-09-01 04:14] LABS: CKMB 4.3 ng/mL (0-6.6)
[2020-09-01] MEDS ORDERED: Ondansetron PF 4 MG/2 ML Vial ONE (04:23)
[2020-09-01 07:51] LABS: Troponin I 0.073 ng/mL (< 0.028)
--- NOTE | 2020-09-01 07:54 | RAD ---
RADIOGRAPH CHEST 1 VIEW: DATE: 09/01/2020 TIME: 3:25 AM HISTORY: 79-year-old male with substernal chest pain COMPARISON: 05/31/2017 FINDINGS: New streaky mild oblique density at right lower lung zone, perhaps subsegmental atelectasis. New effacement of left lateral costophrenic angle, questionable for small left pleural effusion. The rest of the visualized lung peres are clear. No pulmonary edema. No pneumothorax. Cardiomegaly. Left subclavian AICD. Sternotomy wires. IMPRESSION: 1) nonspecific small opacities at lung bases bilaterally. 2) no pulmonary edema. 3) previous open-heart surgery. 4) implantable cardioverter-defibrillator.
[2020-09-01] MEDS ORDERED: Furosemide 20 MG TAB PO PRN (10:01)
[2020-09-01 10:06] LABS: Troponin I 0.083 ng/mL (< 0.028)
[2020-09-01] MEDS ORDERED: Apixaban 5 MG TAB PO SCH ×3 (10:30→21:00)
[2020-09-01] MEDS ORDERED: Furosemide 20 MG/2 ML VIAL SLOW IVP SCH (10:30)
--- NOTE | 2020-09-01 11:30 | ULT ---
ULTRASOUND ABDOMEN LIMITED: (RIGHT UPPER QUADRANT) DATE: 09/01/2020 HISTORY: Right upper quadrant abdominal pain in 79-year-old male FINDINGS: Gallbladder:Surgically absent Common duct: 3 mm. Liver:Echotexture are diffusely somewhat coarse. No hepatomegaly. Pancreas:Mostly obscured by shadowing from overlying bowel gas. Right kidney:No hydronephrosis. IMPRESSION: 1) status post cholecystectomy. 2) nonspecific coarse hepatic echotexture.
[2020-09-01] MEDS ORDERED: Furosemide 20 MG/2 ML VIAL ONE (11:37)
--- NOTE | 2020-09-01 12:18 | PDOC.HHP ---
Hospitalist HPI - History of Present Illness Chest pain History of Present Illness: This is an 79-year-old male patient with a history of coronary artery disease at this post CABG, AICD, hypertension and diabetes mellitus who presents this morning on account of chest pain which woke him up from bed abdomen. Pain has since resolved. On waking up he notes he took nitroglycerin and on EMS arrival she got 3 to 4 mg of aspirin. At the time of my evaluation he was chest pain-free He described the pain as 8/10 in intensity initially piercing located on the right lower chest and right upper quadrant region. No radiation. Pain lasted in all for about 30 minutes. He had no associated nausea vomiting. No cough wheeze or associated palpitations. He has had chronic leg edema which has not changed recently. He however notes having dyspnea on exertion. Of note he recently had ablation for A. fib which is his second ablation in all. He follows with Dr. Miranda At presentation blood pressure was 105/64 pulse 71, respiratory rate 18 and saturation 9% on room air. His labs showed BNP 1227.6. Troponin was 0.07, creatinine was 2.33 from a baseline of 1.46 on 06/20/2020. Hemoglobin was 8.7, EKG showed paced ventricular rhythm with no acute changes. Chest x-ray showed Nonspecific small opacities at the lung bases bilaterally, no pulmonary edema. Given his extensive cardiac history and decision was made to admit. While in the ED had a short run of V. tach. Hospitalist team is consulted for admission. Hospitalist ROS - Review of Systems Constitutional: denies: fever, chills, sweats Respiratory: reports: SOB with excertion. denies: cough, shortness of breath Cardiovascular: reports: chest pain. denies: palpitations, orthopnea Gastrointestinal: denies: nausea, vomiting, abdominal pain Neurological: denies: weakness, numbness, incoordination Hospitalist History - Past Medical History Cardiac: reports: AFIB, CAD, CHF, HTN Endocrine: reports: Diabetes - Past Surgical History Past Surgical History: reports: Cholecystectomy - Family History Family History: reports: diabetes mellitus - Social History Smoking Status: Never smoker Alcohol: reports: None Living Situation: With Family - Exam General Appearance: awake alert ENT: normocephalic atraumatic, moist mucosa Heart: RRR, no murmur, no gallops, normal peripheral pulses Respiratory: no wheezes, no rales, no ronchi, no tachypnea Gastrointestinal: soft, non-tender, non-distended, normal bowel sounds Extremities: no cyanosis, no clubbing, 1+ LE edema Neurological: cranial nerve grossly intact, no focal deficits Musculoskeletal: normal tone, normal strength, no muscle wasting Psychiatric: normal affect, normal behavior, A&O x 3 Hospitalist Results - Labs Result Diagrams: 09/01/20 03:16 09/01/20 03:16 Lab results: WBC 6.2 thou/uL (4.8-10.8) 09/01/20 03:16 Hgb 8.7 g/dL (14.0-18.0) L 09/01/20 03:16 Hct 27.1 % (42.0-52.0) L 09/01/20 03:16 MCV 103.0 fL (78.0-98.0) H 09/01/20 03:16 Plt Count 183 thou/uL (130-400) 09/01/20 03:16 Neutrophils % 75.0 % (42.0-75.0) 09/01/20 03:16 Sodium 143 mmol/L (136-145) 09/01/20 03:16 Potassium 4.5 mmol/L (3.5-5.1) 09/01/20 03:16 Chloride 107 mmol/L (98-107) 09/01/20 03:16 Carbon Dioxide 26 mmol/L (23-31) 09/01/20 03:16 BUN 58 mg/dL (8.4-25.7) H 09/01/20 03:16 Creatinine 2.33 mg/dL (0.7-1.3) H 09/01/20 03:16 Glucose 157 mg/dL (83-110) H 09/01/20 03:16 Calcium 8.6 mg/dL (7.8-10.44) 09/01/20 03:16 Total Bilirubin 0.4 mg/dL (0.2-1.2) 09/01/20 03:16 AST 20 U/L (5-34) 09/01/20 03:16 ALT 22 U/L (8-55) 09/01/20 03:16 Alkaline Phosphatase 69 U/L (40-110) 09/01/20 03:16 Creatine Kinase 107 U/L (30-200) 09/01/20 03:16 CK-MB (CK-2) 4.3 ng/mL (0-6.6) 09/01/20 03:16 Troponin I 0.083 ng/mL (< 0.028) H 09/01/20 09:18 B-Natriuretic Peptide 1227.6 pg/mL (0-100) H 09/01/20 03:16 Serum Total Protein 5.5 g/dL (5.8-8.1) L 09/01/20 03:16 Albumin 3.8 g/dL (3.4-4.8) 09/01/20 03:16 Hospitalist H&P A/P - Plan Plan: This is an 79-year-old male patient with a history of coronary disease that is post CABG, atrial fibrillation status post ablation, status post AICD and diabetes mellitus presenting with chest pain that occurred earlier this morning. NSTEMI Troponin elevated at 0.07 Had atypical chest pain however currently stopped We will continue on home medications Admit to telemetry Trend troponin Consult cardiology Nonsustained V. tach Patient has AICD in place Appreciate cardiology input [place] Creatinine 2.33 from 1.46 Possibly cardiorenal With diuresis Monitor BMP Unclear etiology Anemia Hemoglobin 8.7 Check iron studies Monitor H&H Atrial fibrillation Resume amiodarone, apixaban Monitor telemetry Carotid artery disease at this post CABG Continue home medications Monitor on telemetry. Heart failure Patient has dyspnea on exertion with edema with extensive cardiac history. BNP elevated above thousand No recent echo on file Order echocardiogram Pulmonary infiltrate Nonspecific basal infiltrates We will monitor CODE STATUSpartial VT prophylaxiscontinue apixaban
[2020-09-01 12:50] LABS: SARS-CoV-2 MS2 Positive; SARS-CoV-2 N Gene Negative; SARS-CoV-2 S Gene Negative; SARS-CoV-2 by NAA Not Detected (NotDetected); SARS-CoV-2 orf1ab Negative
[2020-09-01] MEDS: Amiodarone 200 MG TAB PO SCH (12:50)
[2020-09-01] MEDS ORDERED: Carvedilol 6.25 MG TAB PO SCH (13:00)
[2020-09-01 15:32] VITALS: BMI 28.8
--- NOTE | 2020-09-01 20:20 | CON ---
DATE OF CONSULTATION: HISTORY OF PRESENT ILLNESS: Patient is an 79-year-old gentleman with a history of coronary artery bypass graft surgery and severe ischemic cardiomyopathy, who presented with right-sided chest discomfort and dyspnea. The patient underwent coronary artery bypass graft surgery in 1985 x2. He had a saphenous vein graft to the LAD and right coronary artery. He suffered a large anterior wall myocardial infarction at that time. The patient re-presented in January 1999 with chest pain and he underwent a repeat catheterization and found to have severe decrease in left ventricular systolic function. He had an estimated ejection fraction 25% to 30%. The patient was found to have an occluded graft to the LAD, right coronary artery had diffuse distal disease and the patient was placed on medical therapy. Patient had actually been on a cardiac transplantation list for several years. He was followed by Dr. Stacey Isabel in [place]. The patient subsequently also underwent a repeat cardiac catheterization in 2011. He was found to have a severe decreased left ventricular systolic function with estimated ejection fraction 10% to 15%. The saphenous vein graft to the right coronary artery had a patent anastomosis and there was diffuse disease in rosebud coronary vessels. The patient has done remarkably well. He had, however, persistent ventricular tachycardia 2 months ago. He underwent radiofrequency ablation for ventricular tachycardia. The patient states he has subsequently not felt well. He woke up with right-sided chest discomfort. It seemed to improve when he sat up. The patient denies having any present chest discomfort. PAST MEDICAL HISTORY: 1. Coronary artery disease. 2. Ischemic cardiomyopathy. 3. Hypertension. 4. Dyslipidemia. 5. History of ventricular tachycardia. 6. Diabetes mellitus. 7. History of paroxysmal atrial fibrillation. PAST SURGICAL HISTORY: Cholecystectomy. SOCIAL HISTORY: Nonsmoker. MEDICATIONS: 1. Eliquis 5 b.i.d. 2. Vascepa 2 tablets p.o. b.i.d. 3. Aspirin 81 daily. 4. Lipitor 20 daily. 5. Coreg 12.5 daily. 6. Enalapril 5 b.i.d. 7. Imdur 30 q.a.m. ALLERGIES: PLAVIX. REVIEW OF SYSTEMS: Noticeable for increasing lower extremity swelling. PHYSICAL EXAMINATION: GENERAL: Obese gentleman, in no acute distress. VITAL SIGNS: Blood pressure 106/58. NECK: Showed jugular venous distention to the jaw. LUNGS: Clear to auscultation. HEART: Regular rate and rhythm with a normal S1, S2. No murmurs. ABDOMEN: Distended. EXTREMITIES: Showed moderate bilateral edema. VASCULAR: Radial pulse 2+. LABORATORY DATA: White blood cell count 6.2, hemoglobin 8.7, hematocrit 27.1, platelets 183. Sodium is 143, potassium 4.5, chloride 107, bicarbonate 26, BUN 58, creatinine 2.3, glucose is 157. Troponin was 0.075. BNP was 1227. EKG Dual- chamber electronic pacemaker. IMPRESSION: 1. Chest pain 2. Severe ischemic cardiomyopathy. 3. Status post coronary artery bypass surgery x2 with an occluded graft to the LAD. 4. Status post VT ablation. 5. Renal insufficiency. 6. History of AICD placement. 7. Dyslipidemia. This gentleman presented with chest pain. His cardiac enzymes are unremarkable. The patient does have worsening renal insufficiency. He appears to be volume depleted. We will check the patient's echocardiogram. We will ask to evaluate him for his progressive heart failure with renal insufficiency. We will follow this patient with you through his hospitalization. Job ID: [id number] [facility]
[2020-09-01] MEDS: Icosapent Ethyl 1 GM CAPSULE PO SCH (22:03)
[2020-09-01] MEDS: Atorvastatin Calcium 20 MG TAB PO SCH (22:03)
--- NOTE | 2020-09-01 23:23 | PDOC.FMACP ---
Advance Care Planning - Note Summary: Advanced Care Planning was discussed. The diagnosis, prognosis and goals of care were discussed. Surrogate decision maker will be patient's . Patient's is full code
[2020-09-02 04:45] LABS: #Eosinphils 0.1 thou/uL (0.0-0.7); #Monocytes 0.4 thou/uL (0.11-0.59); #Neutrophils 3.7 thou/uL (1.40-6.50); %Basophils 0.4 % (0.0-1.0); %Eosinophils 1.1 % (0.0-10.0); %Lymphocytes 18.6 % (21.0-51.0); %Monocytes 8.2 % (0.0-10.0); %Neutrophils 71.7 % (42.0-75.0); Hemoglobin 8.7 g/dL (14.0-18.0); Mean Corpuscular HGB CONC 31.7 g/dL (32.0-36.0); Mean Corpuscular Hemoglobin 32.5 pg (27.0-31.0); Mean Platelet Volume 8.2 fL (7.4-10.4); Platelet Count 171 thou/uL (130-400); RBC Distribution Width 12.7 % (11.5-14.5); Red Blood Cell (RBC) Count 2.67 mill/uL (4.70-6.10); White Blood Cell (WBC) Count 5.1 thou/uL (4.8-10.8)
[2020-09-02 05:08] LABS: Anion Gap 16 mmol/L (10-20); BUN (Urea Nitrogen) 54 mg/dL (8.4-25.7); Calc. Creatinine Clearance 37 mL/min (70-130); Calcium 8.5 mg/dL (7.8-10.44); Carbon Dioxide 21 mmol/L (23-31); Chloride 109 mmol/L (98-107); Estimated GFR-MDRD 30; Glucose 112 mg/dL (83-110); Iron 27 ug/dL (65-175); Iron Binding Capacity, Total 375 mcg/dL (261-462); Potassium 4.7 mmol/L (3.5-5.1); Sodium 141 mmol/L (136-145)
[2020-09-02] MEDS: Icosapent Ethyl 1 GM CAPSULE PO SCH ×2 (08:45→19:56)
[2020-09-02] MEDS: Amiodarone 200 MG TAB PO SCH (08:46)
[2020-09-02] MEDS ORDERED: Furosemide 40 MG/4 ML VIAL SLOW IVP SCH (09:00)
[2020-09-02] MEDS ORDERED: Aspirin 81 mg Enteric Coated Tablet PO SCH (09:00)
[2020-09-02] MEDS ORDERED: Carvedilol 6.25 MG TAB PO SCH ×2 (09:00→17:00)
[2020-09-02] MEDS ORDERED: Enoxaparin Sodium 40 MG/0.4 ML SYRINGE SC SCH (09:00)
[2020-09-02] MEDS ORDERED: Iron, Sodium Ferric Gluconate 125 MG in Sodium Chloride 0.9% 100 ML IVPB SCH ×2 (11:00→11:45)
[2020-09-02] MEDS ORDERED: Iron Sucrose Complex 100 MG in Sodium Chloride 0.9% 100 ML IVPB SCH (12:15)
[2020-09-02] MEDS ORDERED: Polyethylene Glycol 3350 17 GM Packet PO SCH (18:15)
[2020-09-02] MEDS: Atorvastatin Calcium 20 MG TAB PO SCH (19:56)
[2020-09-02 21:49] VITALS: BP 121/61; TEMP 97.5
--- NOTE | 2020-09-02 22:38 | PDOC.DS.DS ---
Provider - Provider Date of Admission: 09/01/20 04:19 Date of Discharge: 09/02/20 Admitting Provider: Ercik Olivares MD Primary Care Physician: Arturo Menendez MD Course - Hospital Course Hospital Course: This is an 79-year-old male patient with a history of currently status post CABG, AICD placement, hypertension and diabetes mellitus who presented on account of worsening shortness of breath and chest pain. He was admitted and further evaluated. Troponin was marginally elevated but did not climb any higher. Echocardiogram showed Very reduced EF at 10 to 15%. Cardiology was consulted and decision was made to transfer him to [place] for further management. Other problems include anemia for which is ferritin was low. Initial plans from gastroenterology evaluation however patient had to be transferred. He also had elevated creatinine but could not be evaluated by nephrology prior to discharge Resuscitation Status: 09/01/20 09:50 Resuscitation Status Routine Resuscitation Status: PRTL: Chem only Discussed with: Discussed with patient - Labs Lab Results: 09/02/20 04:12 09/02/20 04:12 Abnormal Lab Results - Last 48 hrs 09/01/20 03:16: RBC 2.64 L, Hgb 8.7 L, Hct 27.1 L, MCV 103.0 H, MCH 33.0 H, Lymphocytes % 15.0 L, Lymphocytes # 0.9 L 09/01/20 03:16: BUN 58 H, Creatinine 2.33 H, Serum Total Protein 5.5 L, Globulin 1.7 L 09/01/20 03:16: Troponin I 0.075 H 09/01/20 03:16: B-Natriuretic Peptide 1227.6 H 09/01/20 06:50: Troponin I 0.073 H 09/01/20 09:18: Troponin I 0.083 H 09/02/20 04:12: Chloride 109 H, Carbon Dioxide 21 L, BUN 54 H, Creatinine 2.12 H, Iron 27 L 09/02/20 04:12: RBC 2.67 L, Hgb 8.7 L, Hct 27.3 L, MCV 103.0 H, MCH 32.5 H, MCHC 31.7 L, Lymphocytes % 18.6 L, Lymphocytes # 1.0 L 09/02/20 04:12: Ferritin 17.42 L - Physical Exam Vitals: Vital Signs (12 hours) Temp Pulse Resp BP Pulse Ox 09/02/20 20:00 97.5 F L 72 18 121/61 98 09/02/20 15:29 97.8 F 71 16 148/74 H 99 09/02/20 12:01 97.7 F 73 16 124/73 97 Weight Weight 208 lb Physical Exam: The patient was seen and examined on the day of discharge. Problem - Discharge Plan Assessment: Heart failure Ejection fraction failure Transfer [facility] for further management. Anemia To be evaluated by GI transfer site CKD Nephrology evaluation Plan - Discharge Medications Home Medications: Medication Instructions Recorded Confirmed Type Apixaban [Eliquis] 5 mg PO BID 09/12/14 09/01/20 History Aspirin [Aspirin EC] 81 mg PO QAM 09/12/14 09/01/20 History Atorvastatin Calcium 20 mg PO QPM 09/12/14 09/01/20 History Enalapril Maleate [Vasotec] 5 mg PO BID 09/12/14 09/01/20 History Folic Acid 400 mg PO QAM 09/12/14 09/01/20 History Qurjslqm-Uprsdyh-Dehk 149-Hyal 1 tablet PO QAM 09/12/14 09/01/20 History [Glucosamine Chondroitin Complex] Green Tea [place] Extract [Green Tea 500 mg PO QAM 09/12/14 09/01/20 History Extract] Insulin Detemir 100 UNITS/ML 56 units SC HS 09/12/14 09/01/20 History [Levemir] Lutein 20 mg PO QAM 09/12/14 09/01/20 History Multivit-Min/FA/Lycopene/Lut 1 tablet PO QAM 09/12/14 09/01/20 History [Centrum Silver] Nateglinide [Starlix] 120 mg PO AC 09/12/14 09/01/20 History Pantoprazole [Protonix] 40 mg PO QAM 09/12/14 09/01/20 History Zinc 50 mg PO QAM 09/12/14 09/01/20 History Cranberry Fruit Extract [Cranberry] 1 tab PO QAM 05/31/17 09/01/20 History Cyanocobalamin 1000 MCG/ML VIA 1,000 mcg IM Q28D 05/31/17 09/01/20 History [Vitamin B-12] Carvedilol 12.5 mg PO DAILY 06/23/20 09/01/20 History Furosemide 1 tab PO DAILY PRN 06/23/20 09/01/20 History Icosapent Ethyl [Vascepa] 2 gm PO BID 06/23/20 09/01/20 History Isosorbide Mononitrate [Imdur ER] 30 mg PO DAILY 06/23/20 09/01/20 History Amiodarone [Cordarone] 200 mg PO DAILY 09/01/20 09/01/20 History Ascorbic Acid [Vitamin C] 500 mg PO DAILY 09/01/20 09/01/20 History Cholecalciferol (Vitamin D3) 1,000 unit PO DAILY 09/01/20 09/01/20 History [Vitamin D3] Echinacea 400 mg PO DAILY 09/01/20 09/01/20 History Pantoprazole [Protonix] 40 mg PO BID tab 09/02/20 Rx Allergies: clopidogrel [From Plavix] Allergy (Verified 09/01/20 15:35) "bo like" - Follow up Plan Referrals: [facility] [Other] Cardiac Rehab - [place] [Outside] - 7 Days (Your doctor has ordered outpatient cardiac rehab for you to begin within 1-2 weeks after you go home from the hospital. The location nearest to you is the [place] [facility] [facility]. The front office in [place] will call you in 3-5 days to get you scheduled for your evaluation. If you do not receive a call, please reach out to them at [phone] and request an appointment. Should you have any trouble or need assistance, please call the cardiac rehab main line in [place] at [phone]) Timmy Gibbs MD [Affiliate] - 09/08/20 10:30 am Henry Miranda MD [Active] - Disposition: OTHER HOSPITAL IN Quality - Care Measures CORE MEASURES:: N/A
--- NOTE | 2020-09-02 23:42 | CON ---
DATE OF CONSULTATION: 09/02/2020 REASON FOR CONSULTATION: Iron-deficiency and anemia with epigastric pain. HISTORY OF PRESENT ILLNESS: Philippe Ramos is a very pleasant 79-year-old gentleman. He has a very significant past cardiac history with severe coronary artery disease and ischemic cardiomyopathy. His left ventricular ejection fraction is only 10% to 15% and evidently has been this way for a long time. He has had multiple ablation procedures for atrial fibrillation as well as ventricular tachycardia. He was admitted to the hospital yesterday after having an episode of chest pain which was essentially on the right side of the chest, but also involving the epigastrium and mid chest somewhat. It lasted about 30 minutes and then completely resolved. He has been having some off and on "indigestion" and mild heartburn and belching over the past couple of months despite daily pantoprazole, which he has been on for years. At any rate upon presentation, he was found to be in acute on chronic renal failure with creatinine up to 2.33. He has a macrocytic anemia with hemoglobin of 8.7, which is at the low end of his baseline. Echocardiogram today demonstrated severe elevation of right ventricular systolic pressure as well as marked depressed ejection fraction of only 10% to 15%. Evidently, transfer down to [place] is being contemplated for complex cardiac catheterization. The patient is currently feeling well. He is eating dinner, not having any difficulties. There is no nausea, vomiting, diarrhea, or constipation. He denies any melena or hematochezia, epistaxis, hematemesis, or gross hematuria. He has been seen in the past by my colleague, Dr. Eaton. His last colonoscopy was satisfactory a couple of years ago. He does not recall having undergone any prior EGD. REVIEW OF SYSTEMS: Full review of systems, including constitutional, head, eyes, ears, nose, throat, GI, , cardiovascular, respiratory, musculoskeletal, neurologic systems is negative, except as noted in the HPI. PAST MEDICAL HISTORY: Coronary artery disease; coronary artery bypass graft; AICD placement; RFA for ventricular tachycardia; atrial fibrillation, status post ablation; hypertension; diabetes; cholecystectomy; ischemic cardiomyopathy with ejection fraction of 10% to 15% and elevated RVSP. SOCIAL HISTORY: No smoking or alcohol use. FAMILY HISTORY: Noncontributory. ALLERGIES: CLOPIDOGREL. HOME MEDICATIONS: 1. Vitamin D3. 2. Vitamin C. 3. Echinacea. 4. Amiodarone. 5. Vascepa 2 g b.i.d. 6. Zinc. 7. Protonix 40 mg daily. 8. Starlix. 9. Multivitamin. 10. Lutein. 11. Imdur ER. 12. Levemir insulin 56 units subcutaneously at bedtime. 13. Green tea extract. 14. Glucosamine chondroitin complex. 15. Furosemide. 16. Folic acid 400 p.o. daily. 17. Vitamin B12 is 1000 mcg injection monthly. 18. Enalapril. 19. Cranberry fruit extract. 20. Carvedilol. 21. Atorvastatin. 22. Aspirin 81 mg daily. 23. Eliquis 5 mg p.o. b.i.d. PHYSICAL EXAMINATION: VITAL SIGNS: Temperature 97.8, pulse 71, blood pressure 148/74, and 99% oxygen saturation on room air. GENERAL: An 79-year-old man, sitting up in the edge of the bed comfortably, in no acute distress. SKIN: He is a bit pale. No jaundice. No rashes that are palpable. EYES: No scleral icterus. Extraocular movements intact. ENT: Mucous membranes moist. No oral lesions. LYMPH: No submandibular or supraclavicular lymphadenopathy. THYROID: Nontender to palpation. HEART: Regular rate and rhythm. LUNGS: Clear to auscultation bilaterally. ABDOMEN: Bowel sounds present. Soft, nontender to palpation throughout. EXTREMITIES: No peripheral edema. VESSELS: Radial pulses 2+ bilaterally. NEUROLOGIC: Cranial nerves 2 through 12 intact bilaterally. No focal deficits. LABORATORY STUDIES: Hemoglobin 8.7, MCV elevated to 103, WBC 5.1, and platelets 171. Sodium 141, potassium 4.7, BUN 54, and creatinine 2.12. LFTs normal with total bilirubin 0.4, alkaline phosphatase 107, AST 20, ALT 22, and albumin 3.8. CK-MB only 4.3, troponin 0.08. Ferritin low at 17.42. Iron low at 27, and TIBC normal at 375. COVID PCR is negative. IMAGING STUDIES: Chest x-ray show cardiomegaly with AICD in place. Abdominal ultrasound shows absent gallbladder, some coarse liver echotexture, normal common bile duct 3 mm. Echocardiogram demonstrates left ventricular ejection fraction only 10% to 15% with marked elevation in RVSP. ASSESSMENT/PLAN: 1. Iron deficiency. 2. Macrocytic anemia, chronic since 2011. 3. Severe congestive heart failure with ejection fraction of 10% to 15% and elevated RVSP. 4. Indigestion/heartburn. With regard to the iron deficiency and anemia, he does indeed have low iron indices, but the anemia is macrocytic and also essentially chronic since 2012. There is no evidence of hemodynamically significant gastrointestinal bleeding. He had a colonoscopy within the past few years. Occult upper GI bleeding would be in the differential. On the other hand, he would certainly be quite high risk for any endoscopic procedure and I think EGD would be best avoided in his case, particularly with the ongoing runs of ventricular tachycardia, severely depressed ejection fraction, etc. Rather, I would advise trying to double up the pantoprazole to 40 mg twice daily for a few weeks and seeing how he does with regard to his indigestion symptoms. Check vitamin B12 and folic acid levels with morning labs. It is my understanding that he may be getting transferred out to [place] for cardiac catheterization. No further workup from a GI perspective is anticipated at this admission. He can follow up with Dr. Eaton in the outpatient clinic in the next few weeks. Thank you for the consultation. Please call at anytime with questions or concerns. Job ID: [id number]
--- NOTE | 2020-09-03 08:10 | CON ---
DATE OF CONSULTATION: 09/02/2020 SUBJECTIVE: Advanced Heart Failure Cardiology Consulting Service. REASON FOR CONSULTATION: Management of chest pain in heart failure patient. HISTORY OF PRESENT ILLNESS: Mr. Ramos, 79-year-old gentleman with known coronary artery disease and heart failure with reduced ejection fraction, was admitted for unstable angina. Mr. Ramos had extensive cardiac history. He had a myocardial infarction in 1983. Coronary artery bypass was done in 1985. He did very well with that until 1998. Then, he went into heart failure. His EF was reported to be about 20% at that time. He did receive an AICD and eventually a PIERCING SPECIALIST-D. He was seen by Dominick. They followed him. He was never a heart transplant candidate. As late as last year, he was able to walk two blocks without difficulties. He was able to perform his activities of daily living. In November 2019, before the pandemic, he and his were able to dance 3 times per week. Since the pandemic, they have not been able to walk. They believe this caused problems. Then he noticed deterioration of function. He particularly noticed deterioration in his ability to sustain exertion in about March 2020. It was noted that he had a bout of fluttering. Electrophysiology saw ventricular tachycardia. Amiodarone was started. On July 21, 2020, ventricular tachycardia ablation was done. He was sent home on the . He said that he has not been the same since then. His walking distance has drastically decreased down to 25 yards. He now needs to sleep at 45-degree angle. He has about 2 to 3 times a week of PND. He normally does not take furosemide. Recently, he needs to take furosemide at least 20 mg a day, sometimes 40 mg a day. On Tuesday at 1 a.m., he woke up with right-sided chest pain. He described the chest pain as pressure sensation, it was near constant. He was a bit short of breath with it. He took nitroglycerin. The nitroglycerin did not relieve the pain. Due to the severity and the long sustained pain and nonresponsive to nitroglycerin, he came in. He said the pain lasted about almost 3 hours and then it was relieved. Interrogation of the AICD device was done. There was no sustained ventricular tachycardia that correlated with that event. Furthermore, about 2:00 this morning, he woke up with chest pain and shortness of breath again, but this time only lasted about half an hour and then it went away. Currently, he is pain free and feeling relaxed. The interrogation of device showed many episodes, around 50 to 60 episodes of short bursts of ventricular tachycardia that was terminated with antitachycardia pacing on August 29 and August 30, which did not correlate with his chest pain symptoms. Furthermore, second interrogation today done by me did not show any recurrence of ventricular tachycardia since September 01. So, consequently his chest pain that occurred this morning was not due to ventricular tachycardia. PAST MEDICAL HISTORY: 1. Coronary artery disease: Myocardial infarction in 1983, bypass in 1985, heart failure in 1998. 2. History of paroxysmal atrial fibrillation. 3. History of nonsustained ventricular tachycardia. 4. Hypertension, now controlled. 5. Hyperlipidemia. 6. Chronic kidney disease. 7. Type 2 diabetes. SOCIAL HISTORY: 1. He stopped smoking 35 years ago. 2. He has only occasional alcohol use about 2 drinks per year. 3. He denies any illicit drug use. 4. He is to the same for 59 years. FAMILY HISTORY: His father at age 77 of myocardial infarction. His mother at age 94, she just quit eating. ALLERGIES: HE HAS ALLERGY TO CLOPIDOGREL. MEDICATIONS: His current inpatient medications include; 1. Amiodarone 200 mg daily. 2. Aspirin 81 mg daily. 3. Atorvastatin 20 mg p.o. at bedtime. 4. Carvedilol 12.5 mg b.i.d. 5. Isosorbide mononitrate 30 mg daily. 6. Vascepa 2 g p.o. b.i.d. 7. Protonix 40 mg p.o. b.i.d. REVIEW OF SYSTEMS: GENERAL: Reveals fatigue. HEENT: There is no change in vision, hearing, or swallowing. PULMONARY: Please see HPI. CARDIAC: Please see HPI. GI: There is no nausea, vomiting, or diarrhea. : He is able to urinate. MUSCULOSKELETAL: There is no muscle pain or joint pain. INTEGUMENT: There is no report of new skin breakdown. NEUROLOGIC: There is no focal deficit or weaknesses. Telemetry was reviewed. It is biventricular paced rhythm. There appeared to be a 3-beat nonsustained ventricular tachycardia on the telemetry. PHYSICAL EXAMINATION: VITAL SIGNS: Heart rate 70, blood pressure 124/73. GENERAL: Mr. Ramos is surprisingly alert, conversational, and energetic. He looks younger than his age of 79. HEENT: Showed EOMI. Oropharynx is benign with moist mucosa. NECK: He has elevated JVP about 13 cm when sitting up and then it is up to the earlobe when he is at 45-degree angle inclined with positive hepatojugular. PULMONARY: There is good air movement bilaterally, however, there are slight crackles at the right base. CARDIAC: Regular rate and rhythm with normal S1 and S2, there is 2/6 holosystolic murmur near the apex with radiation to the left axilla, corresponding to mitral regurgitation. There is also 2/6 holosystolic murmur at the left sternal border that is tricuspid murmur. His PMI seem to be inferiorly and laterally displaced. ABDOMEN: Soft, nontender. Positive bowel sounds. EXTREMITIES: His lower extremities only have minimal edema and palpable dorsalis pedis pulses. LABORATORY VALUES: Sodium 141, potassium 4.7, chloride at 109, bicarb 21, BUN 54, creatinine 2.1, and glucose 112. His CBC shows white cell count 5.1, hemoglobin 8.7, and platelets at 171. He has indeterminate troponin-I values at 0.075, 0.073, and 0.083. His BNP is 1228, this is actually not far from his baseline. His echocardiogram from September 02, 2020, was reviewed. 1. He has dilated left ventricle with LVIDd at 7.7 cm. 2. He has severely reduced ejection fraction, LVEF is only 15%. 3. There is at least [id number] mitral regurgitation. 4. He has a high E/A ratio, suggests grade 3 or severe diastolic dysfunction. The tissue Doppler is over measure. 5. His right ventricle is moderately dilated but has near normal function. He has severe tricuspid regurgitation with high tricuspid gradient of 51 mmHg. So, this will translate to pulmonary systolic blood pressure at least 65. His catheterization from 2011 was briefly reviewed: 1. His PÉREZ to LAD graft closed. 2. Surprisingly, his north fork left anterior descending and left circumflex are relatively intact. 3. Distal right coronary artery has critical stenosis at PDA junction but distal vessels are small. ASSESSMENT: 79-year-old gentleman has unstable angina. The 3-hour sustained chest pain that resolved is concerning for this. Return of chest pain this morning also indicated possibility, his chest pains did not correlate with ventricular tachycardia. He also had small rise in cTnI with this morning's chest pain. Slow closure of one of the coronary artery could have triggered these increased ventricular tachycardia events and worsening of heart failure in this past month. At this point, finding and correcting a potential significant coronary artery stenosis can really improve this situation. He does have heart failure with reduced ejection fraction with combined systolic and diastolic dysfunction. This is an ischemic cardiomyopathy. It was reported that he did not tolerate Entresto. Thus, if the cause of all current problems is worsening heart failure, he will likely need long-term milrinone infusion therapy to improve function and improve renal status. However, I am reluctant to start milrinone at this time due to known history of ventricular tachycardia and currently he does not have a strong need for it since he is feeling well and seemed to be fairly well compensated at this point. Milrinone will be more preferable than dobutamine because it has less arrhythmia effect. You can also use carvedilol in conjunction with milrinone to decrease the arrhythmic effect. At this point, finding a potential reversible ischemia will be the most important and likely to provide the best overall outcome. Please see the following for my recommendations. RECOMMENDATIONS: 1. Please consider transferring the patient to a center who can do high risk coronary angiogram with PCI to the culprit vessel using a biplane technique. This will allow minimum use of dye. 2. When tolerated, please consider titrating carvedilol to 18.75 mg b.i.d. Please check TSH because amiodarone has been started. Also consider checking Cortrosyn stimulation test. That will determine if this person is adrenally insufficient to cause hyperkalemia. At this point, that is less need so, because his potassium is 4.7 and he has good blood pressure. Consider restarting low-dose IV Lasix tomorrow or when the patient feels like more short of breath. If need to, milrinone can be started at 0.125 mcg/kg per minute. If his systolic blood pressure remains above 100 mmHg, then you will increase milrinone to 0.25 mcg/kg per minute. If one starts milrinone, insure that carvedilol stays on to decrease arrhythmia. For now, milrinone is not needed at this point. 3. Please consider restarting apixaban. The patient has history of paroxysmal atrial fibrillation and he has low blood flow. Consequently, he is likely to form clots. It has been a pleasure taking care of . Philippe Ramos. If you have any questions, please give me a call. I am currently not on service. This is a special one time visit. Thus, I will not be following the patient daily. If needs to be, I can follow the patient next week. The total time for this visit is 75 minutes. This included personally performing history and physical, reviewing echocardiogram, reviewing coronary angiogram, coordinating care with Dr. Mirnada, and counseling the patient and . Job ID: [id number] [facility] CENTERAbby
--- NOTE | 2020-09-03 08:18 | CON ---
DATE OF CONSULTATION: 09/02/2020 HISTORY OF PRESENT ILLNESS: I am seeing Mr. Ramos at our [facility] as an Electrophysiology portrait consultant. His problems are; 1. Recurrent ventricular arrhythmias. a. Prior history of ventricular tachycardia, status post repeated ablations most recently in June 2020. b. Chronic amiodarone suppression. c. Frequent recurrent ventricular tachycardia despite above with prompt ATP termination on ICD interrogation. d. Status post Bi-V ICD implant with a generator change in 2013 with a Medtronic device. 2. Chronic systolic congestive heart failure with ischemic cardiomyopathy. a. Coronary artery bypass grafting surgery in 1985 x2 vessels, a subsequent occluded graft to the left anterior descending artery. b. Left ventricular ejection fraction most recent about 10% to 15%. 3. Paroxysmal atrial arrhythmias. a. History of atrial flutter, status post ablation in 2013. b. History of paroxysmal atrial fibrillation, on Eliquis and amiodarone. 4. Hypertension. 5. Diabetes. ALLERGIES: CLOPIDOGREL. MEDICATIONS: At home, included: 1. Zinc. 2. Lutein. 3. Glucosamine and Chondroitin. 4. Green tea leaf extract. 5. Starlix. 6. Centrum Silver vitamin. 7. Levemir. 8. Protonix. 9. Folic acid. 10. Aspirin. 11. Calcium. 12. Eliquis 5 mg twice a day. 13. Vasotec 5 mg twice a day. 14. Cranberry. 15. Vitamin B12. 16. Carvedilol 12.5 mg daily. 17. Isosorbide mononitrate. 18. Furosemide. 19. Echinacea. 20. Amiodarone 200 mg once a day. 21. Cholecalciferol. 22. Ascorbic acid. SUBJECTIVE: Mr. Ramos is here due to atypical chest pains. He is complaining of abnormal discomfort, radiating to his chest. This occurred at the middle of the night. He took a nitroglycerin and aspirin as well. He was evaluated in the ER, found to be free of chest pains. No acute ID was suspected. His cardiac enzymes were in the borderline range. His BNP though was elevated in the setting of elevated creatinine as well. He denies significant palpitation and gets dizzy at times, but does not pass out. No stroke-like symptoms. No neurological deficits. No direct correlation of his VT events noted by the device. REVIEW OF SYSTEMS: Rest of 12-point system otherwise unremarkable. PAST MEDICAL HISTORY: As above. PAST SURGICAL HISTORY: Significant for cholecystectomy. SOCIAL HISTORY: The patient denies smoking, EtOH, or drug abuse. Lives with family. FAMILY HISTORY: Not contributory except for diabetes. OBJECTIVE DATA: VITAL SIGNS: Blood pressure is 130/64, heart rate 71, respiratory rate 16, and temperature 97.3 degrees Fahrenheit. GENERAL: Alert and oriented man, in no apparent distress. NECK: Supple. Jugular veins not distended. CHEST: Coarse without crackles. HEART: Sounds are regular to rate and rhythm. No murmur or gallop. ABDOMEN: Benign. Bowel sounds positive. EXTREMITIES: Lower extremities, without edema, clubbing, or cyanosis. Pulses are adequate. NEUROLOGIC: The patient is nonfocal. MUSCULOSKELETAL: Without joint swelling deformity. SKIN: Without rash. DATABASE: The EKG was reviewed, revealing sinus rhythm with atrial and ventricular pacing. Occasional PVCs are noted. The ICD interrogation reviewed, revealing a Medtronic Viva XT CURB WORKER-D device. Battery longevity is 4 months detected. Lead parameters are adequate. LV thresholds were 2.25 at 0.4 milliseconds, unchanged. Frequent ventricular tachyarrhythmia episodes were noted on the day of admission, though only nonsustained episodes were seen for 1 to 4 seconds in duration. Sustained, but promptly pace terminated episodes were noted frequently on the 7th and also the 6th and 5th. Also, some episodes on the 4th second are also seen. Optimal measurements are at baseline. No sustained atrial fibrillation seen. LABORATORY DATA: Sodium 141, potassium 4.7, BUN is 54, creatinine is 2.12. The troponin I 0.075, 0.073, and 0.083 consecutively. BNP is 1227. Chest x-ray is consistent with nonspecific small opacities at lung bases, implantable defibrillator in place. ASSESSMENT AND PLAN: Mr. Ramos is a very pleasant 79-year-old gentleman with history of chronic congestive heart failure, ischemic cardiomyopathy, recurrent ventricular tachycardia episodes, requiring ventricular tachycardia ablation in June this year. He has had recurrent ventricular tachycardia episodes, although less symptomatic with ongoing ATP therapies promptly terminating the arrhythmia. This is despite of continued amiodarone therapy as well. Currently admitted with chest pains which are atypical. He has borderline troponin changes only, not unusual for his congestive heart failure condition. He has elevated BNP, although in the setting of renal insufficiency, this finding is of questionable significance. 1. These recurrent ventricular tachycardia episodes still concerning, albeit thought to be symptomatic and is prompting ATP terminating device. At this point, I would hold off on increasing amiodarone therapy, although if further symptoms are seen or he is developing more sustained ventricular tachy episodes, consultation for reloading amiodarone with increasing dose could be made. Long-term, though this will increase his chances for potential amiodarone-related side effects. We have discussed these. Alternative option would be consideration of redo ventricular tachycardia ablation. Risks and benefits discussed. Likely, we will arrange as an outpatient. 2. Atypical chest pain as per Dr. Miranda. 3. Chronic congestive heart failure, reasonable compensation. 4. Renal insufficiency with slightly worsened creatinine than baseline as per primary team. We will follow with you. Job ID: [id number]
[2020-09-03] MEDS ORDERED: Polyethylene Glycol 3350 17 GM Packet PO SCH (09:00)
--- NOTE | 2020-09-04 07:22 | CON ---
DATE OF CONSULTATION: 09/02/2020 CONSULTING PHYSICIAN: Dr. Garcia. REASON FOR CONSULTATION: Acute kidney injury. REASON FOR ADMISSION: Chest pain. HISTORY OF PRESENT ILLNESS: An 79-year-old male with history of coronary artery disease, atrial fibrillation, CHF, came to the hospital with chest pain and he has been evaluated. His creatinine baseline is around 1.3, was found to be 2.3, but is back to 2.1. The patient was having shortness of breath and fluid overload too. He is on Lasix now, is getting better. No fever or chills. PAST MEDICAL HISTORY: Positive for CHF, coronary artery disease, atrial fibrillation, hypertension, diabetes. PAST SURGICAL HISTORY: Cholecystectomy. HOME MEDICATIONS: Reviewed. ALLERGIES: TO CLOPIDOGREL. SOCIAL HISTORY: No smoking, alcohol, or illicit drug abuse. FAMILY HISTORY: No history of kidney disease. REVIEW OF SYSTEMS: CONSTITUTIONAL: Negative for weight loss or gain, ability to conduct usual activities. SKIN: Negative for rash, itching. EYES: Negative for double vision, pain. ENT/MOUTH: Negative for nose bleeding, neck stiffness, pain, tenderness. CARDIOVASCULAR: Negative for palpitations, dyspnea on exertion, orthopnea. RESPIRATORY: Negative for shortness of breath, wheezing, cough, hemoptysis, fever or night sweats. GASTROINTESTINAL: Negative for poor appetite, abdominal pain, heartburn, nausea, vomiting, constipation, or diarrhea. GENITOURINARY: Negative for urgency, frequency, dysuria, nocturia. MUSCULOSKELETAL: Negative for pain, swelling. NEUROLOGIC/PSYCHIATRIC: Negative for anxiety, depression. ALLERGY/IMMUNOLOGIC: Negative for skin rash, bleeding tendency. PHYSICAL EXAMINATION: GENERAL: This is a well-built male, in no apparent distress. VITAL SIGNS: Temperature 97.7, pulse 73, respirations 16, . HEENT: Atraumatic, normocephalic. Oral mucosa moist. NECK: Supple. CV: S1 and S2. Rate and rhythm regular. RESPIRATORY: Clear. MUSCULOSKELETAL: 1+ edema. DERMATOLOGIC: No skin rash. NEUROLOGIC: Alert and awake. PSYCHIATRIC: Normal mood and affect. LABORATORY DATA: Hemoglobin is 8.7. Potassium 4.7, BUN is 54, and creatinine is 2.1. ASSESSMENT AND PLAN: 1. Acute kidney injury on chronic kidney disease stage 3, most likely secondary to cardiorenal syndrome. Agree with current management. We will follow. 2. Acidosis. 3. Cardiorenal syndrome. 4. Hypertension. 5. Edema. 6. Anemia of chronic disease. We will monitor renal function. Avoid nephrotoxins. Continue current management. Continue diuretics. We will have close monitoring of electrolytes and overall function. Thank you for the consult. Job ID: [id number]
--- NOTE | 2020-09-04 10:13 | PQF ---
CLINICAL DOCUMENTATION CLARIFICATION FORM: Dear : Reese Garcia MD Date / Time: 09/04/2020 Please exercise your independent, professional judgment in responding to the clarification form. Clinical indicators are provided on the bottom of this form for your review Please check appropriate box(es): HEART FAILURE: A. ACUITY [ ] Acute [ x ] Acute on Chronic [ ] Chronic B. TYPE: [ x] Systolic / HFrEF [ ] Diastolic / HFpEF [ ] Combined Systolic / Diastolic [ ] Hypertensive Heart and Kidney disease [ ] Hypertensive Heart Disease [ ] Hypertensive Kidney Disease [ ] Other diagnosis (Please specify if any) [ ] Unable to determine In addition, please specify: Present on Admission (POA): [x ] Yes [ ] No [ ] Unable to determine Physician Signature: Date/Time: For continuity of documentation, please document condition throughout progress notes and discharge summary. Thank You To be completed by CDI/Coding staff for physician review: Present Clinical Indicators - Signs / Symptoms / Labs Results and Location in Medical Record [x] Ejection Fraction =10-15 % Echo on 09/02 [x] Dyspnea on exertion H&P on 09/01 [x] 1+ LE edema H&P on 09/01 [x] Elevated BNP 1227.6 Laboratory on 09/01 [x] Heart failure H&P on 09/01 [ ] Orthopnea / SOB / dyspnea [ ] Pleural effusion / pulmonary edema [x] CXR results-questionable for small left pleural effusion Chest X ray on 09/01 [ ] Arrhythmia--tachycardia Present Risk Factors Results and Location in Medical Record [x] History of CAD/ischemic heart disease H&P on 09/01 [x] Hypertension ED provider report on 09/01 [x] NSTEMI H&P on 09/01 Present Treatments Results and Location in Medical Record [ ] Administration of FEDE / ARB / BB [ ] Cardiac monitoring / telemetry/ECHO [x] Lasix PO Continued from home medication on 09/01 [x] Lasix 40 mg IV Medication on 09/01 [ ] AICD [ ] Cardiology Consult CDS/Cap And Hat Production Supervisor Signature: AAS Phone #: Date/Time: 09/04/2020 This is a permanent part of the Medical Record [facility]
== END 2020-09-02 22:05 | disposition short-term general hospital (02) | DRG 280 ==
LOC: ERS 02:54 → ERHOLD 04:19 → 2NO 04:26
PROVIDERS: ADMIT Internal Medicine; ATTEND Internal Medicine
DX: I21.4 Non-ST elevation (NSTEMI) myocardial infarction (principal); I50.23 Acute on chronic systolic (congestive) heart failure; N17.9 Acute kidney failure, unspecified; I47.1 Supraventricular tachycardia; I13.0 Hypertensive heart and chronic kidney disease with heart failure and stage 1 through stage 4 chronic kidney disease, or unspecified chronic kidney disease; I25.110 Atherosclerotic heart disease of native coronary artery with unstable angina pectoris; N18.9 Chronic kidney disease, unspecified; E11.22 Type 2 diabetes mellitus with diabetic chronic kidney disease; I25.5 Ischemic cardiomyopathy; I48.0 Paroxysmal atrial fibrillation; Z96.651 Presence of right artificial knee joint; Z91.040 Latex allergy status; Z88.8 Allergy status to other drugs, medicaments and biological substances; Z95.4 Presence of other heart-valve replacement; Z90.49 Acquired absence of other specified parts of digestive tract; Z85.46 Personal history of malignant neoplasm of prostate; Z79.82 Long term (current) use of aspirin; Z79.899 Other long term (current) drug therapy; Z79.01 Long term (current) use of anticoagulants; Z95.1 Presence of aortocoronary bypass graft; Z95.810 Presence of automatic (implantable) cardiac defibrillator; D50.0 Iron deficiency anemia secondary to blood loss (chronic); E66.9 Obesity, unspecified; Z68.29 Body mass index [BMI] 29.0-29.9, adult; Z20.828 Contact with and (suspected) exposure to other viral communicable diseases
CPT/HCPCS: 36415; 71045; 76705; 80048; 80053; 82550; 82553; 82728; 83540; 83550; 83735; 83880; 84484; 85025; 87635; 93005; 93306; 96374; J1756; J1940; J2405; J3490; U0003